=== PATIENT | male | born 1970 | race Caucasian/White ===

== ENCOUNTER 2021-07-05 10:30 | Emergency (ER) | payer BC, SELFPAY ==
[2021-07-05 10:56] VITALS: BP 141/96; PULSE 83; RESP 18; TEMP 36.9; O2SAT 95; BMI 37.5
[2021-07-05 11:19] LABS: Apearance,Urine Clear (Clear); Blood, Urine 3+ (Negative); Color,Urine Dark Yellow (Yellow); Glucose,Urine (UA) Negative (Negative); Ketones,Urine Negative (Negative); Protein,Urine 4+ (Negative); Specific Gravity, Urine 1.025 (1.005-1.030)
[2021-07-05 11:20] LABS: Bilirubin,Urine Negative (Negative); UTC Leukocyte Esterase,Urine Negative (Negative); UTC Nitrate,Urine Negative (Negative); Urobilinogen,Urine 0.2 EU/dl (0.2)
--- NOTE | 2021-07-05 11:29 | HMH.EDUTC ---
[facility] [place] Condition on Discharge: Fair Time of Disposition: 11:42 <aB Maria - Last Filed: 07/05/21 11:41> Condition on Discharge: Good <Glen Bal - Last Filed: 07/05/21 13:37> Clinical Impression: Right upper quadrant abdominal pain, Right flank pain Hematuria Qualifiers: Hematuria type: unspecified type Qualified Code(s): R31.9 - Hematuria, unspecified Disposition: Home, Self-Care Instructions: DI for Flank Pain Prescriptions: Hydrocod/Acet 5/325 mg [[place] 5/325mg tablet] 1 tab PO Q6HP PRN #10 tab PRN Reason: Moderate Pain Transmission Status: Received by [id number] Referrals: Provider,MD Suzanne [Primary Care Provider] - Juni Vogt MD [Staff Physician] - Medical Decision Making - Medical Records Medical records reviewed: No: I reviewed the patient's medical records. - Fortunato Inquiry Pt receiving controlled substance: No - Lab Data Lab results reviewed: Yes: I reviewed the patient's lab results. <Ba Maria - Last Filed: 07/05/21 11:41> - Lab Data Result diagrams: 07/05/21 12:00 07/05/21 12:00 - CT Data CT Scan: Abdomen, Pelvis Time Received: 13:[address] Reviewed: Yes: I have reviewed the patient's CT results, I have viewed the radiologist's interpretation - Reevaluation(s) Time: 13:34 <Glen Bal - Last Filed: 07/05/21 13:37> Vital Signs: 07/05/21 10:56 07/05/21 11:47 Temperature 98.5 F 98.5 F Temperature Source Oral Oral Pulse Rate [Left] 83 80 Respiratory Rate 18 16 Blood Pressure [Right Arm] 141/96 H 150/92 H Blood Pressure Mean [Right Arm] 111 111 Blood Pressure Position [Right Arm] Sitting 02 Sat by Pulse Oximetry 95 98 Oxygen Delivery Method Room Air - Lab Data Lab Results 07/05/21 11:18: Urine Color Dark yellow, Urine Appearance Clear, Urine pH 6.0, Ur Specific [place] 1.025, Urine Protein 4+, Urine Glucose (UA) Negative, Urine Ketones Negative, Urine Blood 3+, Urine Nitrate Negative, Urine Bilirubin Negative, Urine Urobilinogen 0.2, Ur Leukocyte Esterase Negative 07/05/21 12:00: WBC 11.4 H, RBC 5.95, Hgb 17.9, Hct 54.3 H, MCV 91.2, MCH 30.1, MCHC 33.1, RDW 13.7, Plt Count 214, MPV 8.0, Neut % (Auto) 78.9, Lymph % (Auto) 11.9, Lamb % (Auto) 7.8, Eos % (Auto) 1.0, Baso % (Auto) 0.4, Neut # (Auto) 9.0 H, Lymph # (Auto) 1.4, Lamb # (Auto) 0.9, Eos # (Auto) 0.1, Baso # (Auto) 0.1 07/05/21 12:00: Sodium 138, Potassium 3.5, Chloride 98, Carbon Dioxide 34 H, Anion Gap 9.5, BUN 19, Creatinine 1.20, Estimated Creat Clear 133, Estimated GFR 64, Est GFR ( Amer) 77, Glucose 104 H, Calcium 9.0, Total Bilirubin 0.7, AST 27, ALT 25, Alkaline Phosphatase 51, Total Protein 7.5, Albumin 4.0, Globulin 3.5 H, Albumin/Globulin Ratio 1.1, Lipase 160 Orders (Tests/Meds): ED MEDICATIONS Discontinued Medications Generic Name Dose Route Start Last Admin Trade Name Freq PRN Reason Stop Dose Admin Sodium Chloride 1,000 mls @ 999 mls/hr 07/05/21 12:00 07/05/21 12:28 Sod Chlor 0.9% 1000ml Bag IV 07/05/21 13:00 999 mls/hr .Q1H1M AUDIE Administration Morphine Sulfate 4 mg 07/05/21 11:53 07/05/21 12:28 Morphine 4mg/Ml Syringe IV 07/05/21 11:54 4 mg ONCE ONE Administration Ondansetron HCl 4 mg 07/05/21 11:53 07/05/21 12:28 Ondansetron 4mg/2ml Vial IV 07/05/21 11:54 4 mg ONCE ONE Administration ORDERS Category Date Time Status Urine Culture Stat Micro 07/05/21 11:18 Ordered - CT Data Findings Narrative: IMPRESSION: 1. No urolithiasis or hydronephrosis to account for the reported symptomatology. 2. Additional findings as described above. (Glen Bal) - Reevaluation(s) Reevaluation #1: On reevaluation, the patient's pain is significantly improved. Is tolerating oral intake. Patient does have some blood in his urine and, however CT did not show any obvious evidence of kidney stone. He has a small cyst which could be contributing to this, however I think it is more li
[2021-07-05 11:47] VITALS: BP 150/92; PULSE 80; RESP 16; TEMP 36.9; O2SAT 98; BMI 37.5
--- NOTE | 2021-07-05 11:53 | CT_ITS ---
PROCEDURE INFORMATION: Exam: CT Abdomen And Pelvis Without Contrast Exam date and time: 07/05/2021 11:53 AM Age: 50 years old Clinical indication: Abdominal pain; Right; Patient HX: RT flank pain with hematuria; Additional info: Right flank pain TECHNIQUE: Imaging protocol: Computed tomography of the abdomen and pelvis without contrast. Radiation optimization: All CT scans at this facility use at least one of these dose optimization techniques: automated exposure control; mA and/or kV adjustment per patient size (includes targeted exams where dose is matched to clinical indication); or iterative reconstruction. COMPARISON: No relevant prior studies available. FINDINGS: Detailed evaluation of the abdominal and pelvic viscera is somewhat limited in the absence of intravenous contrast. Lungs: Mild interstitial prominence and chronic granulomatous disease. Liver: Fatty infiltration of the liver. Gallbladder and bile ducts: Unremarkable gallbladder. Pancreas: No pancreatic mass or ductal dilatation. Spleen: No splenomegaly. Adrenal glands: Left adrenal nodularity. Kidneys and ureters: 11 mm exophytic cyst arising from the upper pole the right kidney. No urolithiasis or hydronephrosis. Stomach and bowel: Questionable wall thickening in the nondistended stomach. No significant small bowel dilatation. Prominent stool and diverticula, without pericolonic inflammation. Appendix: No acute appendicitis. Intraperitoneal space: Subtle infiltration of mesenteric fat, without intraperitoneal fluid. Vasculature: Normal caliber of the abdominal aorta. Lymph nodes: Subcentimeter lymph nodes. Urinary bladder: Normal bladder morphology. Reproductive: Punctate prostate calcification. Bones/joints: Schmorl's nodes and degenerative change. Soft tissues: Subcutaneous edema. IMPRESSION: 1. No urolithiasis or hydronephrosis to account for the reported symptomatology. 2. Additional findings as described above. COMMENTS: Consistent with the [employer]'s Incidental Findings Committee white paper (J Am Katie Radiol 2018): Any incidental renal lesion less than 1 cm or classified as too small to characterize, or any incidental cystic renal lesion characterized as simple-appearing, is likely benign. No follow-up imaging is recommended for these lesions per consensus recommendations based on imaging criteria.
[2021-07-05 12:22] LABS: Basophils # 0.1 K/mm3 (0-0.2); Basophils % 0.4 % (0.1-2.0); Eosinophils # 0.1 K/mm3 (0.0-0.4); Hematocrit 54.3 % (42.0-52.0); Hemoglobin 17.9 g/dL (14.1-18.0); Lymphocytes # 1.4 K/mm3 (0.7-4.5); Lymphocytes % 11.9 % (10-50); Mean Corpuscular HGB Conc 33.1 g/dL (31.8-35.4); Mean Corpuscular Hemoglobin 30.1 pg (27.0-31.2); Mean Corpuscular Volume 91.2 fl (80-94); Monocytes # 0.9 K/mm3 (0.1-1.0); Monocytes % 7.8 % (1.7-9.3); Neutrophils % 78.9 % (37.0-80.0); Platelet Count 214 K/mm3 (142-424); Red Blood Count 5.95 M/mm3 (4.60-6.20); Red Cell Distribution Width 13.7 % (11.5-17.5); White Blood Count 11.4 K/mm3 (4.8-10.8)
[2021-07-05 12:26] LABS: Chloride 98 mmol/L (98-107); Potassium 3.5 mmoL/L (3.5-5.1); Sodium 138 mmol/L (136-145)
[2021-07-05 12:28] LABS: Blood Urea Nitrogen 19 mg/dl (9-20)
[2021-07-05 12:29] LABS: Alanine Aminotransferase 25 U/L (12-78); Albumin/Globulin Ratio 1.1 (1.1-1.8); Alkaline Phosphatase 51 U/L (38-126); Anion Gap 9.5 mEq/L (5-15); Aspartate Amino Transferase 27 U/L (17-59); Bilirubin,Total 0.7 mg/dl (0.2-1.3); Carbon Dioxide 34 mmol/L (22.0-30.0); Creatinine Clearance Estimated 133 mL/min (50-200); Estimated Glomerular Filt Rate 64 ml/min (>60); GFR (African American) 77 ML/MIN (>60); Globulin 3.5 g/dL (1.3-3.2); Glucose 104 mg/dl (74-100); Lipase 160 U/L (23-300); Total Protein,Serum 7.5 g/dl (6.3-8.2)
[2021-07-05 13:44] VITALS: BP 134/87; PULSE 89; RESP 16; TEMP 36.6; O2SAT 98
== END 2021-07-05 13:46 | disposition home or self-care (01) ==
LOC: UTC 10:45 → ER 11:41
PROVIDERS: Emergency Medicine; Emergency Provider Nurse Practitioner Family
DX: R10.11 Right upper quadrant pain (principal); R31.9 Hematuria, unspecified
CPT/HCPCS: 74176; 80053; 81003; 83690; 85025; 87086; 96365; 96375; 99283; J2405

== ENCOUNTER → 2021-08-06 11:20 | Outpatient (CLI) | payer BC, SELFPAY | PROVIDERS: Visit Provider Nurse Practitioner | DX: U07.1 COVID-19 (principal) | CPT/HCPCS: C9803; U0003; U0005 ==

== ENCOUNTER 2021-11-26 15:20 | Emergency (ER) | payer BC, SELFPAY ==
[2021-11-26 15:43] VITALS: BP 180/113; PULSE 81; RESP 18; TEMP 36.8; O2SAT 95; BMI 37.5
--- NOTE | 2021-11-26 15:58 | HMH.EDUTC ---
[facility] – [place] Disposition Clinical Impression: Sinusitis Qualifiers: Sinusitis location: unspecified location Chronicity: acute Recurrence: non-recurrent Qualified Code(s): J01.90 - Acute sinusitis, unspecified Disposition: Home, Self-Care Condition on Discharge: Good Instructions: DI for Sinusitis Additional Instructions: Drink plenty of fluids. Take tylenol or ibuprofen for pain or fever. Take the medications as directed. Follow up with your regular doctor. GO TO THE ER FOR ANY WORSENING SYMPTOMS Prescriptions: Benzonatate [Benzonatate 100mg cap] 100 mg PO TIDP PRN #30 cap PRN Reason: Cough [facility]: [facility] methylPREDNISolone [Medrol] 4 mg PO DIRECTED 6 Days #21 packet Transmission Status: [facility] guaiFENesin [Mucinex 600mg tablet] 1 - 2 tab PO BIDP PRN #30 tab PRN Reason: Congestion Transmission Status: [facility] Azithromycin [Z-Kapil 250mg Tab*] 250 mg PO UD DOSE PK #6 tab Transmission Status: [facility] Referrals: Dixie,August, SHANK CEMENTER HAND [Primary Care Provider] - Forms: Work/School Release Time of Disposition: 17:17 Medical Decision Making - Medical Records Medical records reviewed: No: I reviewed the patient's medical records. - Fortunato Inquiry Pt receiving controlled substance: No Vital Signs: 11/26/21 15:43 11/26/21 17:26 Temperature 98.2 F 98.2 F Temperature Source Oral Pulse Rate 81 Pulse Rate [Left] 81 Respiratory Rate 18 18 Blood Pressure 180/113 H Blood Pressure [Right Arm] 180/113 H Blood Pressure Mean [Right Arm] 135 02 Sat by Pulse Oximetry 95 Orders (Tests/Meds): ED MEDICATIONS Discontinued Medications Generic Name Dose Route Start Last Admin Trade Name Freq PRN Reason Stop Dose Admin Ceftriaxone Sodium 1 gm 11/26/21 16:50 11/26/21 17:09 Ceftriaxone 1gm Vial IM 11/26/21 16:51 1 gm ONCE ONE Administration Ketorolac Tromethamine 60 mg 11/26/21 16:50 11/26/21 17:09 Ketorolac 60mg/2ml Vial IM 11/26/21 16:51 60 mg ONCE ONE Administration Lidocaine HCl 0 ml 11/26/21 16:50 11/26/21 17:09 Lidocaine 1% 5ml Pf Vial IM 11/26/21 16:51 2 ml ONCE ONE Administration Methylprednisolone Sodium Succinate 125 mg 11/26/21 16:50 11/26/21 17:08 Methylprednisolone Sod Succ 125mg Vial IM 11/26/21 16:51 125 mg ONCE ONE Administration [facility] [place] HPI - General Stated complaint: sinus , cough, runny nose ,L foot pain Time Seen by Provider: 11/26/21 15:58 Mode of Arrival: Ambulatory Source of Information: Patient Limitations: No Limitations Description of Symptoms (Recalled from Triage Doc. by RN): pt c/o sinus drainage/congestion and a cough x3wks. HEENT Symptoms (Recalled from RN notes): Yes Resp Symptoms (Recalled from RN notes): Yes Skin Symptoms (Recalled from RN notes): No MS Symptoms (Recalled from RN notes): No Functional Status (Recalled from RN notes): wnl - History of Present Illness Provider Complaint: He c/o having sinus congestion and sinus drainage for the past 3 weeks. He usually gets a sinus infection this time of the year and he feels like that is what he has now. - Related Data Previous Rx's Medication Instructions Recorded Hydrocod/Acet 5/325 mg [[place] 1 tab PO Q6HP PRN #10 tab 07/05/21 5/325mg tablet] Azithromycin [Z-Kapil 250mg Tab*] 250 mg PO UD DOSE PK #6 tab 11/26/21 Benzonatate [Benzonatate 100mg 100 mg PO TIDP PRN #30 cap 11/26/21 cap] guaiFENesin [Mucinex 600mg tablet] 1 - 2 tab PO BIDP PRN #30 tab 11/26/21 methylPREDNISolone [Medrol] 4 mg PO DIRECTED 6 Days #21 11/26/21 packet Allergies Allergy/AdvReac Type Severity Reaction Status Date / Time No Known Allergies Allergy Verified 07/05/21 11:02 - Worker's Comp Is this a Worker's Comp case?: No [facility] History - Hepatitis A Screen Attestation statement:: This patient has been screened for Hepatitis A
[2021-11-26 17:26] VITALS: BP 180/113; PULSE 81; RESP 18; TEMP 36.8
== END 2021-11-26 17:27 | disposition home or self-care (01) ==
PROVIDERS: Emergency Provider Nurse Practitioner Family; PCP Nurse Practitioner Primary Care
DX: J01.90 Acute sinusitis, unspecified (principal); M79.672 Pain in left foot; Z79.52 Long term (current) use of systemic steroids
CPT/HCPCS: 96372; 99213; G0463; J0696

== ENCOUNTER 2021-12-22 15:22 | Emergency (ER) | payer BC, SELFPAY ==
[2021-12-22 16:40] VITALS: BP 119/76; PULSE 76; RESP 16; TEMP 36.7; O2SAT 98; BMI 38.2
--- NOTE | 2021-12-22 17:04 | HMH.EDUTC ---
[facility] [place]: Rash Disposition: Home, Self-Care Condition on Discharge: Good Instructions: DI for Rash, Cephalexin, Methylprednisolone Additional Instructions: Take medication as prescribed FOllow up with Family Doctor if no improvement or any worsening of symptoms Return if needed Straight to ER if any life threatening symptoms Start oral steriods tomorrow 11/23/21 Prescriptions: cephALEXin [cephALEXin 500mg capsule*] 500 mg PO Q6H 7 Days #28 cap Transmission Status: Received by [facility] methylPREDNISolone [Medrol 4mg tab] 4 mg PO DIRECTED #21 tab Transmission Status: Received by [facility] Referrals: Provider,Referral, MD [Primary Care Provider] - As needed Time of Disposition: 17:40 Medical Decision Making - Fortunato Inquiry Pt receiving controlled substance: No Fortunato was queried for this patient: No Vital Signs: 12/22/21 16:40 12/22/21 17:25 Temperature 98.1 F 98.1 F Temperature Source Oral Pulse Rate 76 Pulse Rate [Right Brachial] 76 Respiratory Rate 16 16 Blood Pressure 119/76 Blood Pressure [Right Arm] 119/76 Blood Pressure Mean [Right Arm] 90 Blood Pressure Source [Right Arm] Automatic Cuff Blood Pressure Position [Right Arm] Sitting 02 Sat by Pulse Oximetry 98 Oxygen Delivery Method Room Air Orders (Tests/Meds): ED MEDICATIONS Discontinued Medications Generic Name Dose Route Start Last Admin Trade Name Allyn PRN Reason Stop Dose Admin Methylprednisolone Sodium Succinate 125 mg 12/22/21 17:11 12/22/21 17:25 Methylprednisolone Sod Succ 125mg Vial IM 12/22/21 17:12 125 mg ONCE ONE Administration [facility] [place] General Stated complaint: Possible reaction,Face swollen Time Seen by Provider: 12/22/21 17:04 Mode of Arrival: Ambulatory Source of Information: Patient Limitations: No Limitations Description of Symptoms (Recalled from Triage Doc. by RN): PATIENT C/O POSSIBLE ALLERGIC REACTION TO FACE SINCE WEDNESDAY HEENT Symptoms (Recalled from RN notes): No Resp Symptoms (Recalled from RN notes): No Skin Symptoms (Recalled from RN notes): Yes MS Symptoms (Recalled from RN notes): No Functional Status (Recalled from RN notes): WNL - History of Present Illness Provider Complaint: Patient states that he was cutting weeds over the weekend and not sure if he may have got into something he was allergic to or if something may have bitten him States that he has been having swelling in the left side of his face and rash ever since States that yesterday his lip was swollen and he took some benadryl and it helped some States he is not sure if rash and swelling are connected or not - Related Data Home Medications Medication Instructions Recorded Confirmed Testosterone Cypionate 200 mg IM DAILY 12/22/21 12/22/21 allopurinoL [Allopurinol 300mg 300 mg PO DAILY 12/22/21 12/22/21 tablet] hydroCHLOROthiazide [HCTZ 25mg 25 mg PO DAILY 12/22/21 12/22/21 tab] lisinopriL [Lisinopril] 20 mg PO DAILY 12/22/21 12/22/21 Previous Rx's Medication Instructions Recorded cephALEXin [cephALEXin 500mg 500 mg PO Q6H 7 Days #28 cap 12/22/21 capsule*] methylPREDNISolone [Medrol 4mg 4 mg PO DIRECTED #21 tab 12/22/21 tab] Allergies Allergy/AdvReac Type Severity Reaction Status Date / Time No Known Allergies Allergy Verified 07/05/21 11:02 - Worker's Comp Is this a Worker's Comp case?: No [facility] History - Hepatitis A Screen Attestation statement:: This patient has been screened for Hepatitis A risk factors. I have reviewed the patient's past medical history: Yes Laterality Cases: Bilateral: Tonsillectomy - Social History Alcohol Intake: never Occupational Status: other ROS Obtained: Yes All systems reviewed & no additional complaints, Yes Systems reviewed as appropriate & no additional complaints - Constitutional Constitutional: Reports system reviewed and no additional complaints, except
[2021-12-22 17:25] VITALS: BP 119/76; PULSE 76; RESP 16; TEMP 36.7; O2SAT 98
== END 2021-12-22 17:45 | disposition home or self-care (01) ==
PROVIDERS: Emergency Provider Nurse Practitioner
DX: R21 Rash and other nonspecific skin eruption (principal)
CPT/HCPCS: 96372; 99212; G0463

== ENCOUNTER 2022-07-21 15:44 | Emergency (ER) | payer BC, SELFPAY ==
[2022-07-21 15:50] VITALS: BP 148/90; PULSE 74; RESP 18; TEMP 36.7; O2SAT 98; BMI 36.5
--- NOTE | 2022-07-21 16:08 | EXP.UTC ---
Discharge Plan Disposition Patient Disposition: Home, Self-Care Prescriptions Prescriptions: New prednisone 10 mg tablet 10 mg PO BID 5 Days Qty: 10 0RF azithromycin [Zithromax Z-Kapil] 250 mg tablet See Rx Instructions .ROUTE .COMPLEX 5 Days Qty: 6 0RF Rx Instructions: For 250 mg dose pack: take 500 mg today (day 1), then 250 mg for 4 days (days 2-5) polymyxin B sulf-trimethoprim [Polytrim] 10,000 unit- 1 mg/mL drops 2 drp ophthalmic (eye) Q6H 7 Days Qty: 10 0RF Rx Instructions: while awake; do not exceed 6 doses in 24 hours No Action lisinopril 20 MG tablet 20 mg PO DAILY allopurinol 300 MG tablet 300 mg PO DAILY hydrochlorothiazide 25 MG tablet 25 mg PO DAILY testosterone cypionate 200 MG/ML oil 200 mg IM DAILY rosuvastatin 5 mg tablet 5 mg PO HS Label Comments: TAKE 1 TABLET BY MOUTH ONCE DAILY Referrals Follow up/Referrals: Jalil Osman MD [Primary Care Provider] - See instructions Activity Restrictions/Add. Instructions Additional Instructions/Restrictions: *Monitor Temp, Over the counter Motrin or Tylenol as directed/as needed Tylenol every 4 hours and Motrin every 6 hours (as long as your family doctor has told you that you can take it) for fever or pain. and straight to ER if unable to lower temp less than 101.0 after medication given *Warm salt water gargles may help to soothe the throat *Throat Lozenges? *Warm fluids like tea with honey may help to soothe the throat? *Sleep elevated *Humidifier/Vaporizer Wash your hands before and after applying eyedrops Return if needed Follow up IMMEDIATELY for new or worsening symptoms or no Noticeable improvement over the next 48-72 hours. 911 for difficulty breathing or swallowing Clinical Impressions Clinical Impression: Sinusitis, Conjunctivitis Instructions Patient Instructions: DI for Sinusitis, Sinusitis, Conjunctivitis, DI for Conjunctivitis Discharge ED Provider: Nava Yip [facility] [place] General Stated complaint: congestion, sinus pressure, watery eyes Mode of Arrival: Ambulatory Source of Information: Patient Limitations: No Limitations Time Seen by Provider: 07/21/22 16:08 Description of Symptoms (Recalled from Triage Doc. by RN): PATIENT C/O SINUS CONGESTION, EYE DRAINAGE, AND COUGH X 3 DAYS HEENT Symptoms (Recalled from RN notes): Yes Resp Symptoms (Recalled from RN notes): Yes Skin Symptoms (Recalled from RN notes): No MS Symptoms (Recalled from RN notes): No Functional Status (Recalled from RN notes): WNL History of Present Illness Provider Complaint: Patient states that he has been having sinus pain and pressure, cough and drainage from his eyes States that today drainage from his eyes has got worse and is thick stringy yellowish colored so this evening he came in to get checked out Related Data Home Medications Medication Instructions Recorded Confirmed allopurinol 300 mg tablet 300 mg PO DAILY GOUT 12/22/21 07/21/22 hydrochlorothiazide 25 mg tablet 25 mg PO DAILY Fluid 12/22/21 07/21/22 lisinopril 20 mg tablet 20 mg PO DAILY Hypertension 12/22/21 07/21/22 testosterone cypionate 200 mg/mL 200 mg IM DAILY Supplement 12/22/21 07/21/22 intramuscular oil rosuvastatin 5 mg tablet 5 mg PO HS Cholesterol 07/21/22 07/21/22 Previous Rx's Medication Instructions Recorded azithromycin 250 mg tablet See Rx Instructions PO .COMPLEX 5 07/21/22 (Zithromax Z-Kapil) days #6 tabs polymyxin B sulfate 10,000 2 drp ophthalmic (eye) Q6H 7 days 07/21/22 unit-trimethoprim 1 mg/mL eye #10 mL drops (Polytrim) prednisone 10 mg tablet 10 mg PO BID 5 days #10 tabs 07/21/22 Allergies Allergy/AdvReac Type Severity Reaction Status Date / Time No Known Allergies Allergy Verified 07/05/21 11:02 Worker's Comp Is this a Worker's Comp case?: No PFS PFS Disclaimer: The information contained in this section may have been updated after the patient
[2022-07-21 16:11] VITALS: BP 148/90; PULSE 74; RESP 18; TEMP 36.7; O2SAT 98
== END 2022-07-21 16:24 | disposition home or self-care (01) ==
PROVIDERS: Emergency Provider Nurse Practitioner; PCP Family Medicine
DX: H10.9 Unspecified conjunctivitis (principal); J32.9 Chronic sinusitis, unspecified
CPT/HCPCS: 99212; G0463

== ENCOUNTER → 2022-12-15 15:34 | Outpatient (CLI) | payer BC, SELFPAY | PROVIDERS: PCP Physician Assistant; Visit Provider Physician Assistant | DX: G47.33 Obstructive sleep apnea (adult) (pediatric) (principal); R06.83 Snoring | CPT/HCPCS: G0399 ==

== ENCOUNTER → 2022-12-29 15:40 | Outpatient (POV) | payer BC, SELFPAY | PROVIDERS: Visit Provider Dermatology | DX: Z00.00 Encounter for general adult medical examination without abnormal findings (principal) ==

== ENCOUNTER → 2023-01-07 23:00 | Outpatient (CLI) | payer BC, SELFPAY ==
[2023-01-07 18:37] LABS: Basophils # 0.1 K/mm3 (0-0.2); Basophils % 0.7 % (0.1-2.0); Eosinophils # 0.2 K/mm3 (0.0-0.4); Eosinophils % 2.4 % (0.1-12.0); Hematocrit 53.9 % (42.0-52.0); Hemoglobin 17.2 g/dL (14.1-18.0); Lymphocytes # 2.4 K/mm3 (0.7-4.5); Lymphocytes % 27.3 % (10-50); Mean Corpuscular HGB Conc 31.9 g/dL (31.8-35.4); Mean Corpuscular Hemoglobin 28.7 pg (27.0-31.2); Mean Platelet Volume 8.8 fl (7.4-10.4); Monocytes # 0.7 K/mm3 (0.1-1.0); Monocytes % 8.1 % (1.7-9.3); Neutrophils # 5.4 K/mm3 (1.8-7.8); Neutrophils % 61.5 % (37.0-80.0); Platelet Count 224 K/mm3 (142-424); Red Blood Count 5.98 M/mm3 (4.60-6.20); Red Cell Distribution Width 14.8 % (11.5-17.5); White Blood Count 8.7 K/mm3 (4.8-10.8)
[2023-01-07 18:59] LABS: Alanine Aminotransferase 34 U/L (12-78); Albumin Level 4.5 g/dl (3.5-5.0); Albumin/Globulin Ratio 1.5 (1.1-1.8); Alkaline Phosphatase 54 U/L (38-126); Anion Gap 18.6 mEq/L (5-15); Aspartate Amino Transferase 32 U/L (17-59); Bilirubin,Total 0.5 mg/dl (0.2-1.3); Blood Urea Nitrogen 28 mg/dl (9-20); Calcium 9.7 mg/dl (8.4-10.2); Carbon Dioxide 32 mmol/L (22.0-30.0); Chloride 97 mmol/L (98-107); Chol/HDL Ratio 3.7 (1-3.5); Cholesterol 158 mg/dl (140-200); Estimated Glomerular Filt Rate 49 ml/min (>60); GFR (African American) 59 ML/MIN (>60); Globulin 3.1 g/dL (1.3-3.2); Glucose 113 mg/dl (74-100); HDL Cholesterol 43 mg/dl (40-60); Potassium 4.6 mmoL/L (3.5-5.1); Sodium 143 mmol/L (136-145); Total Protein,Serum 7.6 g/dl (6.3-8.2); Triglycerides 319 mg/dl (30-150); VLDL Cholesterol 64 mg/dL (0-40)
[2023-01-07 19:11] LABS: Direct LDL Cholesterol 70.28 mg/dL (100-129)
[2023-01-07 19:30] LABS: Prostate Specific Ag Screen 0.5 ng/ml (0.0-4.0); Thyroid Stimulating Hormone 2.04 uIU/mL (0.465-4.68)
[2023-01-07 19:49] LABS: Vitamin B12 978 pg/mL (239-931)
[2023-01-09 12:28] LABS: Testosterone,Total 121 ng/dL (264-916)
== END ==
PROVIDERS: PCP Physician Assistant; Visit Provider Physician Assistant
DX: E66.9 Obesity, unspecified; E29.1 Testicular hypofunction; Z68.35 Body mass index [BMI] 35.0-35.9, adult; Z12.5 Encounter for screening for malignant neoplasm of prostate
CPT/HCPCS: 80053; 80061; 82306; 82607; 84403; 84443; 85025; G0103

== ENCOUNTER 2023-01-28 15:18 | Emergency (ER) | payer BC, SELFPAY ==
[2023-01-28 15:20] VITALS: BP 155/93; PULSE 85; RESP 20; TEMP 37.1; O2SAT 97; BMI 38.9
--- NOTE | 2023-01-28 15:35 | EXP.UTC ---
Discharge Plan Disposition Patient Disposition: Home, Self-Care Condition: Good Prescriptions Prescriptions: New promethazine-DM 6.25-15 mg/5 mL syrup 5 ml PO Q6H PRN (Reason: cough) Qty: 118 0RF fluticasone propionate [Flonase Allergy Relief] 50 mcg/actuation spray,suspension 1 - 2 spray intranasal DAILY Qty: 16 0RF Rx Instructions: administer into each nostril amoxicillin 875 mg tablet 875 mg PO BID Qty: 20 0RF methylprednisolone [Medrol (Kapil)] 4 mg tablets,dose pack See Rx Instructions .Route .COMPLEX 6 Days Qty: 21 0RF Rx Instructions: taper pack; No Action cholecalciferol (vitamin D3) 1,250 mcg (50,000 unit) capsule 1,250 mcg PO WEEKLY mecobalamin (vitamin B12) 5,000 mcg tablet,disintegrating 5,000 mcg PO tadalafil 20 mg tablet 20 mg PO DAILY Qty: 14 0RF testosterone cypionate 200 mg/mL oil 200 mg IM Q2W Qty: 1 5RF Wegovy 0.25 mg/0.5 mL pen injector 0.25 mg SQ WEEKLY Qty: 2 0RF Rx Instructions: administer weeks 1 through 4 of therapy,then increase to 0.5 mg benzonatate 200 mg capsule 200 mg PO TID PRN (Reason: cough) 10 Days Qty: 30 0RF hydrochlorothiazide 25 MG tablet 25 mg PO DAILY lisinopril 20 mg tablet 40 mg PO DAILY rosuvastatin 5 mg tablet 5 mg PO HS Patient Comments: TAKE 1 TABLET BY MOUTH ONCE DAILY Referrals Follow up/Referrals: Joseline Bender PA [Primary Care Provider] - See instructions Activity Restrictions/Add. Instructions Additional Instructions/Restrictions: *Monitor Temp, Over the counter Motrin or Tylenol as directed/as needed Tylenol every 4 hours and Motrin every 6 hours (as long as your family doctor has told you that you can take it) for fever or pain. and straight to ER if unable to lower temp less than 101.0 after medication given *Warm salt water gargles may help to soothe the throat *Throat Lozenges? *Warm fluids like tea with honey may help to soothe the throat? *Sleep elevated *Humidifier/Vaporizer *Flonase 2 sprays in each nostril daily but be aware that it may take 2-3 days before you notice improvement Your throat swab was sent for culture. Those results are typically sent to your primary care. Be sure to follow up in 2-3 days with your family doctor/primary care physician if no improvement so they can review those result and treat if necessary. If you don?t have a primary care doctor, I recommend you get one but in the mean time, you will have to return to a walk in clinic Follow up IMMEDIATELY for new or worsening symptoms or no Noticeable improvement over the next 48-72 hours. 911 for difficulty breathing or swallowing Clinical Impressions Clinical Impression: Otitis media Qualifiers: Otitis media type: unspecified Laterality: right Qualified Code(s): H66.91 - Otitis media, unspecified, right ear Instructions Patient Instructions: Middle Ear Infection, Ear Infections (Alternative Therapy), DI for Sinusitis, Cough Discharge ED Provider: Nava Yip [facility] General Stated complaint: congestion Mode of Arrival: Ambulatory Source of Information: Patient Limitations: No Limitations Time Seen by Provider: 01/28/23 15:30 Description of Symptoms (Recalled from Triage Doc. by RN): PATIENT C/O COUGH AND SCRATCHY THROAT THAT STARTED A COUPLE OF WEEKS AGO AFTER STARTING USE OF C-PAP HEENT Symptoms (Recalled from RN notes): Yes Resp Symptoms (Recalled from RN notes): Yes Skin Symptoms (Recalled from RN notes): No MS Symptoms (Recalled from RN notes): No Functional Status (Recalled from RN notes): WNL History of Present Illness Provider Complaint: Patient states that he started using Cpap about 2 weeks ago not sure if they are related States that he has been having nasal congestion and pressure, pressure and pain in his ears, sore scratchy throat and cough States that he has tried Tessalon Perrles but they arent working so
[2023-01-28 15:52] VITALS: BP 155/93; PULSE 85; RESP 20; TEMP 37.1; O2SAT 97
[2023-01-28 15:52] LABS: UTC Strep Screen (Rapid) Negative (Negative)
== END 2023-01-28 16:00 | disposition home or self-care (01) ==
PROVIDERS: Emergency Provider Nurse Practitioner; PCP Physician Assistant
DX: H66.91 Otitis media, unspecified, right ear (principal); I10 Essential (primary) hypertension; E78.5 Hyperlipidemia, unspecified; R73.03 Prediabetes
CPT/HCPCS: 87880; 99212; 99214; G0463

== ENCOUNTER → 2023-02-04 07:48 | Outpatient (CLI) | payer BC, SELFPAY ==
[2023-02-04 08:38] LABS: Anion Gap 10.9 mEq/L (5-15); Blood Urea Nitrogen 24 mg/dl (9-20); Calcium 8.8 mg/dl (8.4-10.2); Carbon Dioxide 32 mmol/L (22.0-30.0); Chloride 101 mmol/L (98-107); Estimated Glomerular Filt Rate 63 ml/min (>60); GFR (African American) 77 ML/MIN (>60); Glucose 116 mg/dl (74-100); Potassium 3.9 mmoL/L (3.5-5.1); Sodium 140 mmol/L (136-145)
[2023-02-04 08:54] LABS: Hemoglobin A1C 7.2 % (4.0-6.0)
[2023-02-05 14:28] LABS: Testosterone,Total 51 ng/dL (264-916)
== END ==
PROVIDERS: PCP Physician Assistant; Visit Provider Physician Assistant
DX: N28.9 Disorder of kidney and ureter, unspecified (principal); R73.09 Other abnormal glucose
CPT/HCPCS: 36415; 80048; 83036; 84403

== ENCOUNTER 2023-12-31 19:09 | Emergency (ER) | payer BC, SELFPAY ==
--- NOTE | 2023-12-31 19:40 | ED_ITS ---
Discharge Plan Disposition Patient Disposition: Home, Self-Care Condition: Good Prescriptions Prescriptions: New benzonatate 100 mg capsule 100 mg PO TIDP PRN (Reason: Cough) Qty: 30 0RF methylprednisolone 4 mg Tablets,Dose Pack 4 mg PO DIRECTED 6 Days Qty: 21 0RF Rx Instructions: Take 1 pack as directed for 6 days amoxicillin-pot clavulanate 875-125 mg Tablet 1 tab PO Q12H Qty: 20 0RF guaifenesin [Mucinex] 600 mg tablet extended release 12hr 600 - 1,200 mg PO BIDP PRN (Reason: Congestion) Qty: 30 0RF No Action tadalafil 20 mg tablet 20 mg PO DAILY Qty: 14 0RF (DME) blood-glucose meter [Blood Glucose Monitoring] Kit See Rx Instructions .Route Qty: 1 0RF Rx Instructions: FS BID (DME) Blood Glucose Test Strip See Rx Instructions .Route Qty: 50 3RF Rx Instructions: FS BID (DME) lancets [Accu-Chek Softclix Lancets] Misc See Rx Instructions .Route Qty: 100 3RF Rx Instructions: FS BID aspirin [Adult Aspirin Regimen] 81 mg tablet,delayed release (DR/EC) 81 mg PO DAILY Qty: 90 3RF fluticasone propionate [Flonase Allergy Relief] 50 mcg/actuation spray,suspension 1 - 2 spray intranasal DAILY Qty: 16 5RF Rx Instructions: administer into each nostril phentermine [Adipex-P] 37.5 mg tablet 37.5 mg PO DAILY Qty: 30 0RF Rx Instructions: must administer 30 minutes before or 1-2 hours after breakfast lisinopril 40 mg tablet 40 mg PO QDAY 90 Days Qty: 90 3RF Ozempic 1 mg/dose (4 mg/3 mL) pen injector 1 mg SQ WEEKLY Qty: 3 2RF testosterone cypionate 200 mg/mL oil 200 mg IM .COMPLEX Qty: 4 3RF Rx Instructions: 200 mg intramuscularly every 10 days; hydrochlorothiazide 25 mg tablet 25 mg PO DAILY Qty: 90 1RF Referrals Follow up/Referrals: Rosa Maria Bender APRN [Primary Care Provider] - See instructions Activity Restrictions/Add. Instructions Additional Instructions/Restrictions: Drink plenty of fluids. Take tylenol or ibuprofen for pain or fever. Take the medications as directed. Follow up with your regular doctor. GO TO THE ER FOR ANY WORSENING SYMPTOMS Clinical Impressions Clinical Impression: Acute bronchitis Instructions Patient Instructions: Acute Bronchitis, DI for Acute Bronchitis, Methylprednisolone, Amoxicillin and Clavulanic Acid, Dexamethasone Injection Discharge ED Provider: Ba Maria [facility] [place] General Stated complaint: Cough Time Seen by Provider: 12/31/23 19:40 Related Data Previous Rx's Medication Instructions Recorded tadalafil 20 mg tablet 20 mg PO DAILY #14 tabs 01/07/23 blood sugar diagnostic (Blood #50 ea 02/04/23 Glucose Test strips) blood-glucose meter (Blood Glucose #1 ea 02/04/23 Monitoring kit) lancets (Accu-Chek Softclix #100 ea 02/04/23 Lancets) aspirin 81 mg tablet,delayed 81 mg PO DAILY #90 tabs 04/28/23 release (Adult Aspirin Regimen) fluticasone propionate 50 1 - 2 spray intranasal DAILY #16 04/28/23 mcg/actuation nasal grams spray,suspension (Flonase Allergy Relief) lisinopril 40 mg tablet 40 mg PO QDAY 90 days #90 tabs 04/28/23 phentermine 37.5 mg tablet 37.5 mg PO DAILY #30 tabs 04/28/23 (Adipex-P) semaglutide 1 mg/dose (4 mg/3 mL) 1 mg (0.75 mL) SQ WEEKLY #3 mL 04/28/23 subcutaneous pen injector (Ozempic) testosterone cypionate 200 mg/mL 200 mg IM .COMPLEX Supplement #4 mL 07/19/23 intramuscular oil hydrochlorothiazide 25 mg tablet 25 mg PO DAILY Fluid #90 tabs 12/30/23 amoxicillin 875 mg-potassium 1 tab PO Q12H #20 tabs 12/31/23 clavulanate 125 mg tablet benzonatate 100 mg capsule 100 mg PO TIDP PRN Cough #30 caps 12/31/23 guaifenesin 600 mg tablet, 600 - 1,200 mg (1 - 2 x 600 mg) PO 12/31/23 extended release 12 hr (Mucinex) BIDP PRN Congestion #30 tabs methylprednisolone 4 mg tablets in 4 mg PO DIRECTED 6 days #21 tabs 12/31/23 a dose pack Allergies Allergy/AdvReac Type Severity Reaction Status Date / Time No Known Allergies Allergy Verified 06/07/23 15:28 [facility] Disclaimer: The information contained in this section may have been updated after the patient was seen, as this information can be updated by other users. Medical History Gout Hyperlipidemia Hypertension Prediabetes Type 2 diabetes mellitus Surgical History History of cholecystectomy History of tonsillectomy Social History Smoking Status: Unknown if ever smoked alcohol intake: never current occupational status: other Travel in the last 8 weeks: None ROS Obtained: Yes All systems reviewed & no additional complaints except as documented Constitutional Constitutional: Reports poor appetite Eyes Eyes: Reports system reviewed and no additional complaints, except as documented ENT Ears, Nose, Mouth, and Throat: Reports as per HPI Cardiovascular Cardiovascular: Reports system reviewed and no additional complaints, except as documented and Denies chest pain Respiratory Respiratory: Denies shortness of breath, Reports chest congestion, Reports cough, Denies stridor and Denies wheezing Gastrointestinal Gastrointestingal: Reports system reviewed and no additional complaints, except as documented; Denies abdominal pain, diarrhea or vomiting Musculoskeletal Musculoskeletal: Reports system reviewed and no additional complaints, except as documented and Denies arthralgias Integumentary/Breasts Skin/Breast: Reports system reviewed and no additional complaints, except as documented and Denies rash Neurologic Neurologic: Denies paresthesias Allergic/Immunologic Allergic/Immunologic: Denies wheezing Physical Exam General General appearance: alert and in no apparent distress Eye Eye exam: Present normal appearance, PERRL and EOMI ENT ENT exam: Present mucous membranes moist and normal external ear exam Expanded ENT Exam External ear exam: Present normal external inspection TM/Canal exam: Bilateral TM: erythema and bulging Nose exam: Absent sinus tenderness Nasal speculum exam: Bilateral: normal Mouth exam: Present normal external inspection; Absent drooling Teeth exam: Present normal inspection Throat exam: Present tonsillar erythema and tonsillomegaly Neck Neck exam: Present normal inspection, full ROM and trachea midline; Absent tenderness, lymphadenopathy or thyromegaly Chest Chest inspection: Present normal inspection and symmetric chest wall rise; Absent tenderness or rash Respiratory Respiratory exam: Present normal lung sounds bilaterally; Absent respiratory distress, wheezes, stridor or accessory muscle use Cardiovascular Cardiovascular exam: Present regular rate, normal rhythm and normal heart sounds Abdominal Exam Abdominal exam: Present soft; Absent distention, tenderness, guarding, rebound or rigidity Extremities Exam Extremities exam: Present normal inspection, full ROM and normal capillary refill; Absent tenderness or calf tenderness Back Exam Back exam: Present normal inspection and full ROM; Absent tenderness Neurological Exam Neurological exam: Present alert and oriented X3 Psychiatric Psychiatric exam: Present normal affect and normal mood Skin Skin exam: Present warm, dry, intact and normal color Lymphatic Lymphatic Findings: no adenopathy Medical Decision Making Medical Records Medical records reviewed: No I reviewed the patient's medical records. Fortunato Inquiry Pt receiving controlled substance: No
[2023-12-31 19:41] VITALS: BP 141/86; PULSE 79; RESP 20; TEMP 36.7; O2SAT 95; BMI 38.7
[2023-12-31] MEDS: DEXAMETHASONE 4MG/ML 1ML VIAL 8 MG IM (20:00)
[2023-12-31 20:31] VITALS: BP 141/86; PULSE 79; RESP 20; TEMP 36.7; O2SAT 95
== END 2023-12-31 20:32 | disposition home or self-care (01) ==
PROVIDERS: Emergency Provider Nurse Practitioner Family; PCP Nurse Practitioner
DX: J20.9 Acute bronchitis, unspecified (principal); R05.9 Cough, unspecified
CPT/HCPCS: 96372; 99212; 99214; G0463

== ENCOUNTER 2024-02-11 12:30 | Emergency (ER) | payer BC, SELFPAY ==
[2024-02-11 12:35] VITALS: BP 152/82; PULSE 68; RESP 20; TEMP 36.8; O2SAT 95; BMI 37.4
--- NOTE | 2024-02-11 13:09 | ED_ITS ---
Discharge Plan Disposition Patient Disposition: Home, Self-Care Condition: Good Prescriptions Prescriptions: New amoxicillin 875 mg tablet 875 mg PO Q12H Qty: 20 0RF benzonatate 100 mg capsule 100 mg PO TIDP PRN (Reason: Cough) Qty: 30 0RF methylprednisolone 4 mg Tablets,Dose Pack 4 mg PO DIRECTED 6 Days Qty: 21 0RF Rx Instructions: Take 1 pack as directed for 6 days guaifenesin [Mucinex] 600 mg tablet extended release 12hr 600 - 1,200 mg PO BIDP PRN (Reason: Congestion) Qty: 30 0RF oseltamivir [Tamiflu] 75 mg capsule 75 mg PO BID Qty: 10 0RF No Action (DME) blood-glucose meter [Blood Glucose Monitoring] Kit See Rx Instructions .Route Qty: 1 0RF Rx Instructions: FS BID (DME) Blood Glucose Test Strip See Rx Instructions .Route Qty: 50 3RF Rx Instructions: FS BID (DME) lancets [Accu-Chek Softclix Lancets] Misc See Rx Instructions .Route Qty: 100 3RF Rx Instructions: FS BID potassium chloride 10 mEq tablet extended release 10 meq PO DAILY Patient Comments: TAKE 1 TABLET BY MOUTH ONCE DAILY WITH FOOD hydrochlorothiazide 25 mg tablet 25 mg PO DAILY Patient Comments: TAKE 1 TABLET BY MOUTH ONCE DAILY FOR FLUID lisinopril 40 mg tablet 40 mg PO DAILY Patient Comments: TAKE 1 TABLET BY MOUTH ONCE DAILY Referrals Follow up/Referrals: Bebo Vaughn MD [Primary Care Provider] - See instructions Activity Restrictions/Add. Instructions Additional Instructions/Restrictions: Drink plenty of fluids. Take tylenol or ibuprofen for pain or fever. Take the medications as directed. Follow up with your regular doctor. GO TO THE ER FOR ANY WORSENING SYMPTOMS Clinical Impressions Clinical Impression: Acute bronchitis Instructions Patient Instructions: Acute Bronchitis, DI for Acute Bronchitis Discharge ED Provider: Ba Maria [facility] General Stated complaint: chest congestion cough Mode of Arrival: Ambulatory Source of Information: Patient Limitations: No Limitations Time Seen by Provider: 02/11/24 13:09 Description of Symptoms (Recalled from Triage Doc. by RN): PATIENT C/O COUGH X 3 WEEKS. HE STATES HE WAS SEEN 3 WEEKS AGO AND GIVEN ANTIBIOTIC AND STEROIDS AND WAS BETTER, BUT HIS COUGH RETURNED HEENT Symptoms (Recalled from RN notes): No Resp Symptoms (Recalled from RN notes): Yes Skin Symptoms (Recalled from RN notes): No MS Symptoms (Recalled from RN notes): No Functional Status (Recalled from RN notes): WNL Related Data Home Medications Medication Instructions Recorded Confirmed hydrochlorothiazide 25 mg tablet 25 mg PO DAILY 02/11/24 02/11/24 lisinopril 40 mg tablet 40 mg PO DAILY 02/11/24 02/11/24 potassium chloride 10 mEq 10 meq PO DAILY 02/11/24 02/11/24 tablet,extended release Previous Rx's Medication Instructions Recorded blood sugar diagnostic (Blood #50 ea 02/04/23 Glucose Test strips) blood-glucose meter (Blood Glucose #1 ea 02/04/23 Monitoring kit) lancets (Accu-Chek Softclix #100 ea 02/04/23 Lancets) amoxicillin 875 mg tablet 875 mg PO Q12H #20 tabs 02/11/24 benzonatate 100 mg capsule 100 mg PO TIDP PRN Cough #30 caps 02/11/24 guaifenesin 600 mg tablet, 600 - 1,200 mg (1 - 2 x 600 mg) PO 02/11/24 extended release 12 hr (Mucinex) BIDP PRN Congestion #30 tabs methylprednisolone 4 mg tablets in 4 mg PO DIRECTED 6 days #21 tabs 02/11/24 a dose pack oseltamivir 75 mg capsule (Tamiflu) 75 mg PO BID #10 caps 02/11/24 Allergies Allergy/AdvReac Type Severity Reaction Status Date / Time No Known Allergies Allergy Verified 06/07/23 15:28 Worker's Comp Is this a Worker's Comp case?: No [facility] Disclaimer: The information contained in this section may have been updated after the patient was seen, as this information can be updated by other users. Medical History Gout Hyperlipidemia Hypertension Prediabetes Type 2 diabetes mellitus Surgical History History of cholecystectomy History of tonsillectomy Social History Smoking Status: Unknown if ever smoked alcohol intake: never current occupational status: other Travel in the last 8 weeks: None ROS Obtained: Yes All systems reviewed & no additional complaints except as documented Constitutional Constitutional: Reports chills and Reports fever(s) Eyes Eyes: Denies eye discharge ENT Ears, Nose, Mouth, and Throat: Reports as per HPI Cardiovascular Cardiovascular: Denies chest pain Respiratory Respiratory: Denies chest congestion and Reports cough Gastrointestinal Gastrointestingal: Reports nausea; Denies abdominal pain, constipation, cramping, diarrhea or vomiting Musculoskeletal Musculoskeletal: Denies arthralgias Integumentary/Breasts Skin/Breast: Denies rash Neurologic Neurologic: Denies paresthesias Physical Exam General General appearance: alert and in no apparent distress Eye Eye exam: Present normal appearance, PERRL and EOMI ENT ENT exam: Present mucous membranes moist and normal external ear exam Expanded ENT Exam External ear exam: Present normal external inspection TM/Canal exam: Bilateral TM: erythema and bulging Nose exam: Absent sinus tenderness Nasal speculum exam: Bilateral: normal Mouth exam: Present normal external inspection; Absent drooling Teeth exam: Present normal inspection Throat exam: Present tonsillar erythema and tonsillomegaly Neck Neck exam: Present normal inspection, full ROM and trachea midline; Absent tenderness, lymphadenopathy or thyromegaly Chest Chest inspection: Present normal inspection and symmetric chest wall rise; Absent tenderness or rash Respiratory Respiratory exam: Present normal lung sounds bilaterally; Absent respiratory distress, wheezes, stridor or accessory muscle use Cardiovascular Cardiovascular exam: Present regular rate, normal rhythm and normal heart sounds Abdominal Exam Abdominal exam: Present soft; Absent distention, tenderness, guarding, rebound or rigidity Extremities Exam Extremities exam: Present normal inspection, full ROM and normal capillary refill; Absent tenderness or calf tenderness Back Exam Back exam: Present normal inspection and full ROM; Absent tenderness Neurological Exam Neurological exam: Present alert and oriented X3 Psychiatric Psychiatric exam: Present normal affect and normal mood Skin Skin exam: Present warm, dry, intact and normal color Lymphatic Lymphatic Findings: no adenopathy Medical Decision Making Medical Records Medical records reviewed: No I reviewed the patient's medical records. Fortunato Inquiry Pt receiving controlled substance: No Vital Signs: 02/11/24 12:35 Temperature 98.2 F Temperature Source Oral Pulse Rate [Right Brachial] 68 Respiratory Rate 20 Blood Pressure [Right Arm] 152/82 H Blood Pressure Mean [Right Arm] 105 Blood Pressure Source [Right Arm] Automatic Cuff Blood Pressure Position [Right Arm] Sitting 02 Sat by Pulse Oximetry 95 Oxygen Delivery Method Room Air Orders (Tests/Meds): ORDERS Category Date Time Status Rapid PCR Covid and Flu A/B Stat Lab 02/11/24 13:09 Ordered
[2024-02-11 13:10] VITALS: BP 152/82; PULSE 68; RESP 20; TEMP 36.8; O2SAT 95
[2024-02-11 13:18] LABS: Coronavirus 19, PCR Not Detected (NotDetected); Influenza B, PCR Not Detected (NotDetected)
[2024-02-11 14:42] LABS: Influenza A, PCR Detected (NotDetected)
--- NOTE | 2024-02-11 19:00 | PC.NURSE ---
ATTEMPTED TO CALL PATIENT AND NOTIFY HIM OF POSITIVE FLU A, NO ANSWER. VOICE MESSAGE LEFT
--- NOTE | 2024-02-11 19:08 | PC.NURSE ---
NOTIFIED PATIENT OF POSITIVE FLU A RESULT AT THIS TIME. ADVISED PATIENT THAT TAMIFLU WILL BE SENT IN BY Ari BRANDON APRN
== END 2024-02-11 13:14 | disposition home or self-care (01) ==
PROVIDERS: Emergency Provider Nurse Practitioner Family; PCP Family Medicine
DX: J09.X2 Influenza due to identified novel influenza A virus with other respiratory manifestations (principal); J20.8 Acute bronchitis due to other specified organisms; R05.1 Acute cough
CPT/HCPCS: 87636; 99212; 99214; G0463

== ENCOUNTER 2024-11-17 12:10 | Outpatient (CLI) | payer BC, SELFPAY ==
--- OUTSIDE RECORDS SUMMARY | 2024-11-17 12:12 | XMS_ITS | Continuity of Care Document ---
Author Organization [facility] Address [address] [place] [address] Care Team Providers Care Map Mounter Name Role Phone FRANCESCO PATTONIAN Primary Care Provider [phone] Assessment No assessment recorded. Plan of Treatment Reminders Order Date Submit Date Provider Last Modified By Organization Details Last Modified Time Details Appointments OV EST 15 2024 03:45P M Eva Rolle NP Not available Not available Not available Lab None recorded. Referral None recorded. Procedures None recorded. Surgeries None recorded. Imaging None recorded. Medication Orders Xyosted 75 mg/0.5 mL subcutane ous auto-inje ctor 2024 025 [facility], [address] [place] [address] , [address], [place], [place], [phone], 10/19/2024 15:58:59 Patient TargetsNo targets recorded. Patient InstructionsNo instructions recorded. Reason for Referral None Reported. Problems Name Problem SNOMED Code Status Onset Date Resolution Date Notes Provider Name and Address Organization Details Recorded Time Hypercholester olemia 62845432 Active 2024 Danielle Crase null, [place] - [place] [facility] & [place] 5 11:52:58 Sleep apnea 06682533 Active 2024 [facility] [place] 5 11:53:05 Testosterone level below reference range 478680016 Active 2024 [facility] [place] 5 11:53:17 Problem Notes None recorded. Procedures Surgical History Date Name Laterality Status Provider Name and Address Organization Details Recorded Time extraction of wisdom tooth completed Danielle Hearn [place] - [facility] & [place] 08/22/2024 11:53:51 cholecystectomy completed Danielle Rawls [place] - [place] [facility] & [place] 08/22/2024 11:53:59 Imaging Results None recorded. Procedure Notes None recorded. Medical Equipment None Reported. Allergies No known drug allergies Medications Name Sig Start Date Stop Date Status Note LastModified by Organization Details LastModified Time lisinopril 20 mg tablet TAKE 1 TABLET BY MOUTH TWICE DAILY active Not Available Not Available No t Available potassium chloride ER 10 mEq tablet,exte nded release TAKE 1 TABLET BY MOUTH ONCE DAILY WITH FOOD active Not Available Not Available No t Available amoxicillin 875 mg tablet TAKE 1 TABLET BY MOUTH EVERY 12 HOURS 08/22 completed Not Available Not Available Not Available tamsulosin 0.4 mg capsule TAKE 1 CAPSULE BY MOUTH ONCE DAILY active Not Available Not Available No t Available benzonatate 100 mg capsule TAKE 1 CAPSULE BY MOUTH THREE TIMES DAILY NEEDED FOR COUGH 11/16 completed Not Available Not Available Not Available allopurinol 300 mg tablet TAKE 1 TABLET BY MOUTH ONCE DAILY active Not Available Not Available No t Available hydrochloro thiazide 25 mg tablet TAKE 1 TABLET BY MOUTH ONCE DAILY IN THE MORNING active Not Available Not Available No t Available testosteron e cypionate 200 mg/mL intramuscul ar oil INJECT 1ML INTRAMUSC ULARLY EVERY 10 DAYS 08/22 completed Not Available Not Available Not Available methylpredn isolone 4 mg tablets in a dose pack TAKE BY MOUTH DIRECTED ON INSIDE OF PACKAGE 08/22 completed Not Available Not Available Not Available doxycycline hyclate 20 mg tablet TAKE 1 TABLET BY MOUTH TWICE DAILY 08/22 completed Not Available Not Available Not Available lisinopril 40 mg tablet TAKE 1 TABLET BY MOUTH ONCE DAILY 11/16 completed Not Available Not Available Not Available fluticasone propionate 50 mcg/actuati on nasal spray,suspe nsion USE 1 SPRAY(S) IN EACH NOSTRIL ONCE DAILY 11/16 completed Not Available Not Available Not Available amoxicillin 875 mg-potassiu m clavulanate 125 mg tablet TAKE 1 TABLET BY MOUTH EVERY 12 HOURS 11/16 completed Not Available Not Available Not Available fenofibrate 160 mg tablet TAKE 1 TABLET BY MOUTH ONCE DAILY active Not Available Not Available No t Available Mucus Relief ER 600 mg tablet, extended release TAKE 1 TO 2 TABLETS BY MOUTH TWICE DAILY NEEDED FOR CONGESTIO N 11/16 completed Not Available Not Available Not Available Xyosted 75 mg/0.5 mL subcutaneou s auto-inject or Inject 75 mg every week by subcutane ous route for 30 days. 2024 active Not Available Not Available Not Avai lable Ozempic 0.25 mg or 0.5 mg (2 mg/3 mL) subcutaneou s pen injector INJECT 0.5MG SUBCUTANE OUSLY ONCE A WEEK active Not Available Not Available No t Available Vitals Date Recorded Body height Body mass index (BMI) Body weight Systolic blood pressure Diastolic blood pressure Provider Name and Address Organization Details Last Updated DateTime 10/19/2024 185.42 cm 39.9 kg/m2 961487.6 1 g 140 mm[Hg] 82 mm[Hg] Amanda Guerrero [facility] & [place] 15:37:05 Social History Question Answer Notes LastModified by Organizat ion Details LastModified Time Tobacco Smoking Status [facility] [place] 08/22/2024 11:53:43 What Is Your Level Of Alcohol Consumption? None Information not available 08/22/2024 Do You Use Any Illicit Or Recreational Drugs? No Information not available 08/22/2024 Sex: Unknown Functional Status None recorded. Mental Status None recorded. Family History Relationship Description Onset Age of this Age Resolved Age Notes LastModified by Organization Details LastModified Time Mother Hypertensive disorder pt. added direct ly (08/20) [email or web address] Not available 08/20/2024 10:16:01 Father Hypertensive disorder pt. added direct ly (08/20) [email or web address] Not available 08/20/2024 10:16:01 Paternal Grandmother Hypertensive disorder pt. added direct ly (08/20) [email or web address] Not available 08/20/2024 10:16:01 Paternal Grandfather Hypertensive disorder pt. added direct ly (08/20) [email or web address] Not available 08/20/2024 10:16:01 Maternal Grandmother Disorder of endocrine system pt. added direct ly (08/20) [email or web address] Not available 08/20/2024 10:16:13 Medical History No medical history recorded. Past Encounters Encounter ID Performer Location Encounter Start Date Encounter Closed Date Diagnosis/Indication Diagnosis SNOMED-CT Code Diagnosis ICD10 Code Diagnosis Note [id number] Eva Rolle NP, [facility] [place] [address] 10/19/2024 15:07:53 10/19/2024 15:56:14 Testosterone level below reference range 576079693 R89.1 Continue Xyosted 75mg weekly4 week telephone for Testostero ne Refills Health Concerns Section Related Observation LastModified by Organization Detai ls LastModified Time None Recorded Concern Status LastModified by Organization Details LastModified Time None Recorded Payers Encounter Date Sequence Insurance Name Policy Number Policy Jacobsen Covered Member ID Jacobsen Member ID Guarantor Name 10/19/2024 1 [employer] [employer] [place] Aunt Kitchen (PPO) [id number] Ras Yuan [id number] Ras Yuan Notes Date Note Type Note Provider Name and Address Organization Details Recorded Time 10/19/2024 text/html 10/19/2024 Pt RTC for f/u of Low Testosterone. At last visit on 09/12/2024 pt was started on Xyosted 75mg weekly. States he has not noticed a difference since starting the medication. States not having any issues administering the injection. 09/12/2024 I have conducted a phone consultation with this patient. I identified the patient by name and date. He gives me verbal consent to proceed with a phone consultation. My consultation begins at 11:00 AM and ended at 11:18 AM.Spent 15 minutes in Audio only visit performed at patient? s request due to cant use A/V or be seen in person. Patient is at home and provider is at the office. Telephone visit to discuss labwork regarding low Testosterone. Recent labwork on 08/26/2024 revealed Total Testosterone 144, Estradiol 28.1, SHBG 14.7, LH 4.8, FSH 5.5, Prolactin 5.1 Triglycerides 186, Cholesterol 186, HDL 41, RBC 5.3, Hgb 15.1, Hct 47.3 and PSA 0.5 08/22/2024 53 yowm presents to clinic for evaluation of Low Testosterone. Total Testosterone 135 on 07/13/2024. Patient reports he has a longstanding history of low testosterone. Patient reports he was started on HRT approximately 2-3 years ago his last injection was approximately 1 year ago. Patient reports he has been experiencing fatigue, weight gain of 30 lb in the past year, and low libido. He denies any history of AR, CVA or blood clots. Denies any family history of AR, CVA or blood clots. Reports urinary stream is occasionally weak. Reports he does have some postvoid dribbling. Nocturia times 1-2. Bowels move regularly. He denies any dysuria gross hematuria. Denies any history of UTIs or kidney stones. Denies any family history of prostate cancer. Patient reports he is 3 kids and does not want any kids in the future. 08/26/2024: Total Testosterone 144, Estradiol 28.1, SHBG 14.7, LH 4.8, FSH 5.5, Prolactin 5.1 Triglycerides 186, Cholesterol 186, HDL 41, RBC 5.3, Hgb 15.1, Hct 47.3 and PSA 0.512/07/2024: BUN 23, Creat 1.45, Total Testosterone 1359/04/2024: Total Testosterone 98.30 Eva Rolle, [employer], [address], [place], [address], [facility] - [place] & [place] 10/19/2024 15:59:16
--- OUTSIDE RECORDS SUMMARY | 2024-11-17 12:12 | XMS_ITS | Continuity of Care Document ---
Author Organization [facility] Phone Care Team Providers Care Railroad Construction Director Name Role Phone YAMIL ENGLAND Unavailable PATRICK CHAMPION Primary Attending Unavailable PATRICK CHAMPION Admitting Unavailable SAMANTA, YAMIL Primary Care RESULTS Patient: REBEKAH CORONADO Date of : [birth year] 0 6 LABORATORY RESULTS ORDER 100: TESTOSTERONE TOTA L (LOINC: 2986-8) ORDER DATE: August 26, 2024 2:06:00 PM UTC Specimen Source: SERUM Specimen Type: Serum specime n PERFORMING LAB: [address] [id number] Result Comment: August 27, 2024 1:08:00 PM [facility] Adult male reference interval is based on a population of Result Comment: August 27, 2024 1:08:00 PM [facility] healthy nonobese males (BMI <30) between 19 and 39 years Result Comment: August 27, 2024 1:08:00 PM UT old. cheri Babin.al. JCEM 2017,102;[id number]. PMID: Result Comment: August 27, 2024 1:08:00 PM [place] [id number]. Result Comment: August 27, 2024 1:08:00 PM UTC Performed at: [facility] Result Comment: August 27, 2024 1:08:00 PM [place] [address], [place] [id number] Result Comment: August 27, 2024 1:08:00 PM [facility] Lithography Contact Worker: Junior East PhD, Phone: [phone] Result Comment: August 27, 2024 1:08:00 PM UT Final Result Date: August 26, 2024 2:06:00 PM UT (TECH: LAB) LOINC TEST FLAG RESULT REFERENCE RANGE UPDA ZAID BY 2986-8 Testosterone [Mass/volume] in Serum or Plasma L 144 ng/dL 264-916 August 26, 2024 2:06:00 PM UT (TECH: LAB) ORDER 200: LIPID PANEL (LOIN C: 82639-1) ORDER DATE: August 26, 2024 2:06:00 PM UTC Specimen Source: PLASMA Specimen Type: Plasma specim en PERFORMING LAB: [address] [id number] Result Comment: Final Result Date: August 26, 2024 3:22:00 PM UT (TECH: DTR) LOINC TEST FLAG RESULT REFERENCE RANGE UPDA ZAID BY 2571-8 Triglyceride [Mass/volume] in Serum or Plasma N 186 mg/dl 30 mg/dl - 200 mg/dl August 26, 2024 3:22:00 PM UTC (TECH: DTR) 2093-3 Cholesterol [Mass/volume] in Serum or Plasma N 186 mg/dl 0 mg/dl - 200 mg/dl August 26, 2024 3:22:00 PM UTC (TECH: DTR) 14226-5 Cholesterol in HDL [Mass or Moles/volume] in Serum or Plasma N 41 mg/dL 40 mg/dL - 104 mg/dL August 26, 2024 3:22:00 PM UTC (TECH: DTR) 30073-1 Cholesterol in LDL [Mass/volume] in Serum or Plasma by calculation N 108 mg/dL 0 mg/dL - 130 mg/dL August 26, 2024 3:22:00 PM UT (TECH: DTR) ORDER 300: ESTRADIOL (LOINC: 2243-4) ORDER DATE: August 26, 2024 2:06:00 PM UTC Specimen Source: SERUM Specimen Type: Serum specime n PERFORMING LAB: [address] [id number] Result Comment: August 27, 2024 1:08:00 PM UTC [employer] ECLIA methodology Result Comment: August 27, 2024 1:08:00 PM UT Performed at: [facility] Result Comment: August 27, 2024 1:08:[address] [id number] Result Comment: August 27, 2024 1:08:00 PM [facility] Lithography Contact Worker: Junior East PhD, Phone: [phone] Result Comment: August 27, 2024 1:08:00 PM UTC Final Result Date: August 27, 2024 2:06:00 PM UTC (TECH: LAB) LOINC TEST FLAG RESULT REFERENCE RANGE UPDA ZAID BY 2243-4 Estradiol (E2) [Mass/volume] in Serum or Plasma N 28.1 pg/mL 7.6-42.6 August 27, 2024 2:06:00 PM UTC (TECH: LAB) ORDER 400: CBC NO DIFF HEMOG KRISTY (LOINC: 91489-8) ORDER DATE: August 26, 2024 2:06:00 PM UTC Specimen Source: EDTA Specimen Type: Blood specime n with EDTA PERFORMING LAB: [address] [id number] Result Comment: Final Result Date: August 26, 2024 2:20:00 PM UTC (TECH: Flock2) LOINC TEST FLAG RESULT REFERENCE RANGE UPDA ZAID BY 6690-2 Leukocytes [#/volume ] in Blood by Automated count N 7.7 K/ul 4.0 K/ul - 10.5 K/ul August 26, 2024 2:20:00 PM UTC (TECH: KB2) 789-8 Erythrocytes [#/volume] in Blood by Automated count N 5.3 M/mm3 4.7 M/mm3 - 6.1 M/mm3 August 26, 2024 2:20:00 PM UTC (TECH: KB2) 718-7 Hemoglobin [Mass/volume] in Blood N 15.1 gm/dl 13.5 gm/dl - 18.0 gm/dl August 26, 2024 2:20:00 PM UTC (TECH: KB2) 98106-1 Hematocrit [Volume Fraction] of Blood N 47.3 % 42.0 % - 52.0 % August 26, 2024 2:20:00 PM UTC (TECH: KB2) 787-2 Erythrocyte mean corpuscular volume [Entitic volume] by Automated count N 89.1 fl 78 fl - 100 fl August 26, 2024 2:20:00 PM UTC (TECH: KB2) 785-6 Erythrocyte mean corpuscular hemoglobin [Entitic mass] by Automated count N 28.4 pg 27 pg - 31 pg August 26, 2024 2:20:00 PM UTC (TECH: KB2) 786-4 Erythrocyte mean corpuscular hemoglobin concentration [Mass/volume] by Automated count L 31.9 g/dl 32 g/dl - 36 g/dl August 26, 2024 2:20:00 PM UTC (TECH: PlayScape) 78241-7 Erythrocyte distribution width [Ratio] N 13.6 % 11.5 % - 14.0 % August 26, 2024 2:20:00 PM UTC (TECH: PlayScape) 777-3 Platelets [#/volume] in Blood by Automated count N 230 K/ul 150 K/ul - 450 K/ul August 26, 2024 2:20:00 PM UTC (TECH: PlayScape) 22385-2 Platelet mean volume [Entitic volume] in Blood by Automated count H 10.3 fl 6 fl - 9.5 fl August 26, 2024 2:20:00 PM UTC (TECH: PlayScape) 05695-6 Manual Differential panel - Blood N NO August 26, 2024 2:20:00 PM UTC (TECH: PlayScape) ORDER 500: PROLACTIN (LOINC: 2842-3) ORDER DATE: August 26, 2024 2:06:00 PM UTC Specimen Source: SERUM Specimen Type: Serum specime n PERFORMING LAB: [address] [id number] Result Comment: August 27, 2024 1:08:00 PM UTC Performed at: [facility] Result Comment: August 27, 2024 1:08:00 PM UTC [address], [place] [id number] Result Comment: August 27, 2024 1:08:00 PM UTC Lithography Contact Worker: Junior East PhD, Phone: [phone] Result Comment: August 27, 2024 1:08:00 PM UTC Final Result Date: August 27, 2024 2:06:00 PM UTC (TECH: LAB) LOINC TEST FLAG RESULT REFERENCE RANGE UPDA ZAID BY 2842-3 Prolactin [Mass/volume] in Serum or Plasma N 5.1 ng/mL 3.6-25.2 August 27, 2024 2:06:00 PM UTC (TECH: LAB) ORDER 600: FSH (LOINC: 41270 -2) ORDER DATE: August 26, 2024 2:06:00 PM UTC Specimen Source: SERUM Specimen Type: Serum specime n PERFORMING LAB: [address] [id number] Result Comment: August 27, 2024 1:08:00 PM UTC Performed at: [facility] Result Comment: August 27, 2024 1:08:00 PM UTC [address] [place] [id number] Result Comment: August 27, 2024 1:08:00 PM UTC Lithography Contact Worker: Junior East PhD, Phone: [phone] Result Comment: August 27, 2024 1:08:00 PM UTC Final Result Date: August 27, 2024 2:06:00 PM UTC (TECH: LAB) LOINC TEST [place] [address]-5 Follitropin [Units/volume] in Serum or Plasma N 5.5 mIU/mL 1.5-12.4 August 27, 2024 2:06:00 PM UTC (TECH: LAB) ORDER 700: LUTEINIZING HORMO NE (LOINC: 67461-6) ORDER DATE: August 26, 2024 2:06:00 PM UTC Specimen Source: SERUM Specimen Type: Serum specime n PERFORMING LAB: [address] [id number] Result Comment: August 27, 2024 1:08:00 PM UTC Performed at: [facility] Result Comment: August 27, 2024 1:08:00 PM UTC [address] [place] [phone] Result Comment: August 27, 2024 1:08:00 PM UTC Lithography Contact Worker: Junior East PhD, Phone: [phone] Result Comment: August 27, 2024 1:08:00 PM UTC Final Result Date: August 27, 2024 2:06:00 PM UTC (TECH: LAB) LOINC TEST [place] [address]-0 Lutropin [Units/volume] in Serum or Plasma N 4.8 mIU/mL 1.7-8.6 August 27, 2024 2:06:00 PM UTC (TECH: LAB) ORDER 800: SEX HORMONE PAT NG GLOBULIN (LOINC: 97242-3) ORDER DATE: August 26, 2024 2:06:00 PM UTC Specimen Source: SERUM Specimen Type: Serum specime n PERFORMING LAB: [address] [id number] Result Comment: August 27, 2024 1:08:00 PM UTC Performed at: [facility] Result Comment: August 27, 2024 1:08:00 PM UTC [address] [place] [phone] Result Comment: August 27, 2024 1:08:00 PM UTC Lithography Contact Worker: Junior East PhD, Phone: [phone] Result Comment: August 27, 2024 1:08:00 PM UTC Final Result Date: August 27, 2024 2:06:00 PM UTC (TECH: LAB) LOINC TEST FLAG [place] [address]-8 Sex hormone binding globulin [Moles/volume] in Serum or Plasma L 14.7 nmol/L 19.3-76.4 August 27, 2024 2:06:00 PM UTC (TECH: LAB) ORDER 900: PROSTATE SPECIFIC AG PSA (LOINC: 2857-1) ORDER DATE: August 26, 2024 2:06:00 PM UTC Specimen Source: PLASMA Specimen Type: Plasma specim en PERFORMING LAB: [address] [id number] Result Comment: Final Result Date: August 26, 2024 3:22:00 PM UTC (TECH: DTR) LOINC TEST FLAG RESULT REFERENCE RANGE UPDA ZAID BY 2857-1 Prostate specific Ag [Mass/volume] in Serum or Plasma N 0.5 ng/mL 0 ng/mL - 4.0 ng/mL August 26, 2024 3:22:00 PM UTC (TECH: DTR) LABORATORY NARRATIVE RESULTS Information is not available RADIOLOGY RESULTS Information is not available PATHOLOGY NARRATIVE RESULTS Information is not available MICROBIOLOGY RESULTS No Micro Labs/Results Exist for Patient BLOOD ADMIN RESULTS Information is not available MEDICATIONS HOME MEDICATIONS Status RXNORM NDC Medication Dose Route Frequency Dates Comments Reported By Updated By Drug Treatment Unknown DISCHARGE MEDICATIONS Status RXNORM NDC Medication Dose Route Frequency Dates Comments Physician Updated By No Discharge Medication Info rmation Available INPATIENT MEDICATIONS Status RXNORM NDC Medication Dose Route Frequency Rat e Quantity Dates Comments Physician Updated By No Inpatient Medication Info rmation Available SOCIAL HISTORY SOCIAL HISTORY SNOMED-CT Social History Element Description Effective Dates Offered Cessation Comment UpdatedBy [id number] Smoking Status Unknown If Ever Smoked SOCIAL HISTORY - Gender Sex: Male SOCIAL HISTORY - Status : status i nformation is not available Intention in Next Year: intention information is not available SOCIAL HISTORY - Sexual Behavior Sexual Orientation Gender Identity SNOMED-CT Description SNO MED -CT Description Activity Level No of Partners Partner Type UpdatedBy Information is not available HEALTH CONCERNS Problems Concern Status Health Concern problem infor mation not available. Smoking Status Status Years Used Consumed packs p er day Health Concern smoking histo ry information not available. Family History Concern Status Health Concern family histor y information not available. ENCOUNTERS ENCOUNTER INFORMATION Reason for Visit LABS Admission August 26, 2024 1:43:[address] [id number] Discharge August 26, 2024 1:43:00 PM [facility] DISCHARGED TO HOME OR SELF CARE ENCOUNTER DIAGNOSES Notes information is not juma ilable. Code System Diagnosis Onset Date Diagnosis information is not available. ABSTRACT DIAGNOSES Code System Diagnosis Updated By Z12.5 ICD10 ENCOUNTER FOR SC REENING FOR MALIGNANT NEOPLASM OF PROSTATE [id number] on August 29, 2024 5:07:10 AM [facility] R89.1 ICD10 ABNORMAL LEVEL O F HORMONES IN SPECIMENS FROM OTHER ORGANS, SYSTEMS AND TISSUES [id number] on August 29, 2024 5:07:10 AM [facility] Z12.5 ICD10 ENCOUNTER FOR SC REENING FOR MALIGNANT NEOPLASM OF PROSTATE [id number] on August 29, 2024 5:07:10 AM [facility] R89.1 ICD10 ABNORMAL LEVEL O F HORMONES IN SPECIMENS FROM OTHER ORGANS, SYSTEMS AND TISSUES [id number] on August 29, 2024 5:07:10 AM [facility] CARE TEAM Care Railroad Construction Director Role YAMIL ENGLAND Referring PATRICK CHAMPION Primary Attending PATRICK CHAMPION Admitting YAMIL ENGLAND Primary Care CARE TEAM CARE station mechanic helper Role on Team Status Start Date End Date Update d By SAMANTA MARCH Referring normal August 26, 2024 5:00:00 AM [facility] August 26, 2024 1:43:00 PM [facility] [id number] on August 26, 2024 1:46:32 PM [facility] RAGLE PATRICK P Attending normal August 26 5:00:00 AM [facility] August 26, 2024 1:43:00 PM [facility] [id number] on August 26, 2024 1:46:32 PM [facility] JAYCEE Forrest Admitting normal August 26 5:00:00 AM [facility] August 26, 2024 1:43:00 PM [facility] [id number] on August 26, 2024 1:46:32 PM [facility] SAMANTA MARCH PCP normal August 26, 2024 5:00:00 AM [facility] August 26, 2024 1:43:00 PM [facility] [id number] on August 26, 2024 1:46:32 PM [facility]
--- OUTSIDE RECORDS SUMMARY | 2024-11-17 12:12 | XMS_ITS | Data Portability ---
Author Organization [facility] & [place] [facility] ADMIN Address [address] [place] [id number] Care Team Providers Care Icing Machine Operator Name Role Phone REBECCA PATTON Primary Care Provider Assessment No assessment recorded. Plan of Treatment Reminders Order Date Submit Date Provider Last Modified By Organization Details Last Modified Time Details Appointments OV EST 15 2024 03:45P M Eva Rolle NP Not available Not available Not available Lab PSA, total, serum or plasma 2024 025 [facility] (Registration ), [address] [place], [address], 08/22/2024 10:30:42 testoster one, total, serum 2024 025 [facility] (Registration ), [address] [place], [address], 08/27/2024 08:10:06 lipid panel, serum 2024 025 [facility] (Registration ), [address] [place], [address], 08/22/2024 10:30:42 estradiol , serum 2024 025 [facility] (Registration ), [address] [place], [address], 08/22/2024 10:30:41 CBC 2024 025 [facility] (Registration ), [address], [place], [address], 08/22/2024 10:30:42 prolactin , serum 2024 025 [facility] (Registration ), [address] [place], [address], 08/27/2024 08:10:14 FSH (follicle -stimulat ing hormone), serum 2024 025 [facility] (Registration ), [address] [place], [address], 08/27/2024 08:10:10 lh (luteiniz ing hormone), serum 2024 025 [facility] (Registration ), [address] [place], [address], 08/27/2024 08:10:08 shbg (sex hormone-b inding globulin) , serum 2024 025 [facility] (Registration ), [address] [place], [address], 08/27/2024 08:10:12 Referral None recorded. Procedures None recorded. Surgeries None recorded. Imaging None recorded. Medication Orders Xyosted 75 mg/0.5 mL subcutane ous auto-inje ctor 2024 025 [facility], [facility] , [address], [place], [place], [id number], 11/16/2024 13:30:12 Xyosted 75 mg/0.5 mL subcutane ous auto-inje ctor 2024 025 [facility], [facility] [address], [address], [place], [place], [id number], 10/19/2024 15:58:59 Xyosted 75 mg/0.5 mL subcutane ous auto-inje ctor 2024 025 [facility], [address] [facility] , [address], [place], [place], [id number], 09/12/2024 11:25:01 tamsulosi n 0.4 mg capsule 2024 025 [facility], [address], [address], 08/22/2024 10:35:00 Patient TargetsNo targets recorded. Patient InstructionsNo instructions recorded. Reason for Referral None Reported. Results Created Date Observation Date Name Description Value Unit Range Abnormal Flag Note LastModifiedBy Organization Detail LastModifiedTime 08/26/1908/26/2024 CBC NO DIFF (HEMO GRAM) WBC 7.7 K/uL 4.0-10 .5 Not Available [facility] ([facility]) [address] [place], [address], 08/26/2024 09:21:59 08/26/19 25 08/26/2024 CBC NO DIFF (HEMO GRAM) RBC 5.3 M/mm3 4.7-6. 1 Not Available [facility] ([facility]) [address], [place], [address], 08/26/2024 09:21:59 08/26/19 25 08/26/2024 CBC NO DIFF (HEMO GRAM) HGB 15.1 gm/dL 13.5-1 8.0 Not Available [facility] ([facility]) [address] [place], [address], 08/26/2024 09:21:59 08/26/19 25 08/26/2024 CBC NO DIFF (HEMO GRAM) HCT 47.3 % 42.0-5 2.0 Not Available [facility] ([facility]) [address] [place], [address], 08/26/2024 09:21:59 08/26/19 25 08/26/2024 CBC NO DIFF (HEMO GRAM) MCV 89.1 fL 78-100 Not Available [facility] ([facility]) [address], [place], [address], 08/26/2024 09:21:59 08/26/19 25 08/26/2024 CBC NO DIFF (HEMO GRAM) MCH 28.4 pg 27-31 Not Available [facility] ([facility]) [address], [place], [address], 08/26/2024 09:21:59 08/26/1908/26/2024 CBC NO DIFF (HEMO GRAM) MCHC 31.9 g/dL 32-36 low Not Available [facility] ([facility]) [address], [place], [address], 08/26/2024 09:21:59 08/26/19 25 08/26/2024 CBC NO DIFF (HEMO GRAM) RDW 13.6 % 11.5-1 4.0 Not Available [facility] ([facility]) [address] [facility], [place], [address], 08/26/2024 09:21:59 08/26/19 25 08/26/2024 CBC NO DIFF (HEMO GRAM) platelet count 230 K/uL 150-45 0 Not Available [facility] ([facility]) [address] [facility], [place], [address], 08/26/2024 09:21:59 08/26/1908/26/2024 CBC NO DIFF (HEMO GRAM) MPV 10.3 fL 6-9.5 high Not Available [facility] ([facility]) [address] [facility], [place], [address], 08/26/2024 09:21:59 08/26/19 25 08/26/2024 CBC NO DIFF (HEMO GRAM) manual differential NO Not Available [facility] ([facility]) [address] [place], [address], 08/26/2024 09:21:59 08/26/19 25 08/26/2024 LIPID PANEL triglyceride 186 mg/dL 30-200 Not Available [facility] ([facility]) [address] [place], [address], 08/26/2024 10:23:58 08/26/19 25 08/26/2024 LIPID PANEL cholesterol 186 mg/dL 0-200 Not Available [facility] ([facility]) [address] [place], [address], 08/26/2024 10:23:58 08/26/19 25 08/26/2024 LIPID PANEL HDL 41 mg/dL 40-104 Not Available [facility] ([facility]) [address] [place], [address], 08/26/2024 10:23:58 08/26/19 25 08/26/2024 LIPID PANEL LDL calculated 108 mg/dL 0-130 Not Available [facility] ([facility]) [address] [place], [address], 08/26/2024 10:23:58 08/26/19 25 08/26/2024 PROST ATE SPECI FIC AG (PSA) prostate specific Ag (PSA) 0.5 NG/mL 0-4.0 Not Available [facility] ([facility]) [address] [place], [address], 08/26/2024 10:23:59 08/26/19 25 08/27/2024 TESTO STERO NE TOTAL testosterone , serum 144 NG/dL 264-91 6 low Adult male refer ence inter rika is based on a popul ation of healt hy nonob arelis males (BMI <30) betwe en 19 and 39 years old. Jose Antonio mabry et.al . JCEM 2017, 102;1 161-1 173. PMID: 98466 103. Perfo rmed at: [facility] [address] [place] [address] Lab Direc tor: Donavan prado PhD, Phone : [phone] Not Available [facility] ([facility]) [address] [place], [address], 08/27/2024 08:10:06 08/26/19 25 08/27/2024 LUTEI OVIDIO G HORMO NE luteinizing hormone (LH), ser 4.8 mIU/m L 1.7-8. 6 Perfo rmed at: [facility] [id number] [place], [place] [id number] Lab Direc tor: Donavan prado PhD, Phone : [phone] Not Available [facility] ([facility]) [address] [place], [address], 08/27/2024 08:10:08 08/26/19 25 08/27/2024 FSH FSH, serum 5.5 mIU/m L 1.5-12 .4 Perfo rmed at: [facility] n [address] [place] [id number] Lab Direc tor: Donavan prado PhD, Phone : [phone] Not Available [facility] ([facility]) [address] [place], [address], 08/27/2024 08:10:10 08/26/19 25 08/27/2024 ESTRA DIOL estradiol 28.1 pg/mL 7.6-42 .6 Iglesia ECLIA metho dolog y Perfo rmed at: [facility] [address] [place] [address] Lab Direc tor: Donavan prado PhD, Phone : [phone] Not Available [facility] ([facility]) [address] [place], [address], 08/27/2024 08:10:11 08/26/19 25 08/27/2024 SEX HORMO NE PAT NG GLOBU NATY sex hormone binding glob, seru 14.7 nmol/ L 19.3-7 6.4 low [facility] at: [facility] [address] [place] [address] Lab Direc tor: Donavan prado PhD, Phone : [phone] Not Available [facility] ([facility]) [address] [facility], [place], [address], 08/27/2024 08:10:12 08/26/1908/27/2024 PROLA CTIN prolactin 5.1 NG/mL 3.6-25 .2 Perfo rmed at: [facility] [address] [place] [address] Lab Direc tor: Donavan prado PhD, Phone : [phone] Not Available [facility] ([facility]) [address] [facility], [place], [address], 08/27/2024 08:10:14 Result Notes None recorded. Problems Name Problem SNOMED Code Status Onset Date Resolution Date Notes Provider Name and Address Organization Details Recorded Time Hypercholester olemia 44393758 Active 2024 Danielle patten, [place] - [facility] - [place] & [place] 11:52:58 Sleep apnea 15315078 Active 2024 Danielle Hearn null, [place] - [facility] [place] 11:53:05 Testosterone level below reference range 915785473 Active 2024 Danielle Hearn null, [place] - [facility] [place] 11:53:17 Problem Notes None recorded. Procedures Surgical History Date Name Laterality Status Provider Name and Address Organization Details Recorded Time extraction of wisdom tooth completed Danielle Hearn [place] - [facility] - [place] & [place] 08/22/2024 11:53:51 cholecystectomy completed Danielle Rawls [place] - [facility] & [place] 08/22/2024 11:53:59 Imaging Results None recorded. Procedure [...] Available Not Available Not Available amoxicillin 875 mg-potabranu m clavulanate 125 mg tablet TAKE 1 [...] height Body mass index (BMI) Body weight Body temperature Oxygen saturation Oxygen saturation in Arterial blood by Pulse oximetry Systolic blood pressure Diastolic blood pressure Provider Name and Address Organization Details Last Updated DateTime 185.42 cm 39.9 kg/m2 419874. 33 g 98.7 [degF] 100 % 100 % 122 mm[Hg] 70 mm[Hg] Danielle Hearn [facility] & [place] 10:15:29 Date Recorded Body height Body mass index (BMI) Body weight Systolic blood pressure Diastolic blood pressure Provider Name and Address Organization Details Last Updated DateTime 10/19/2024 185.42 cm 39.9 kg/m2 228096.6 1 g 140 mm[Hg] 82 mm[Hg] Amanda Guerrero [facility] & [place] 5 15:37:05 Social History Question Answer Notes LastModified by Organizat ion Details LastModified Time Tobacco Smoking Status Never Smoker Danielle Hearn [facility] & [place] 08/22/2024 11:53:43 What Is Your Level Of [...] SNOMED-CT Code Diagnosis ICD10 Code Diagnosis Note [id number] Eva Rolle NP, S [facility]1 00 [address] [facility] [address] [place] [address] 08/22/2024 09:53:10 08/22/2024 10:33:03 Testosterone level below reference range 217288677 R89.1 Get labwork Total Testostero ne, Lipid Panel, FSH, LH, Prolactin, SHBG, Estradiol, Screening PS Hypogonadi sm possible causes and TTX with risks, benefits, and alternativ es discussed. Discussed with pt in great detail about the different testostero ne treatments . Explained to the pt the possible side effects of testostero ne, required office visits necessitat ed for the treatment, and lab work that would need to be monitored. Pt voiced understand ing of all the above. RTC in 2 weeks for f/u of labwork results Slowing of urinary stream 38425784 R39.12 Start Tamsulosin 0.4mg daily. Discussed possible SEs of the medication Screening for malignant neoplasm of prostate 533247486 Z12.5 Erectile dysfunction 860 174307 F52.21 [id number] Eva Rolle NP, S [facility]1 00 [address] [facility] [address] [place] [address] 09/12/2024 11:09:36 09/12/2024 11:25:24 Testosterone level below reference range 430828229 R89.1 Labwork results reviewed and discussed with pt Hypogonadi sm possible causes and TTX with risks, benefits, and alternativ es discussed. Discussed with pt in great detail about the different testostero ne treatments . Explained to the pt the possible side effects of testostero ne, required office visits necessitat ed for the treatment, and lab work that would need to be monitored. Pt voiced understand ing of all the above. Pt would like to start on Xyosted. Start Xyosted 75mg weekly [id number] Eva Rolle NP, S [facility]1 00 [address] [facility] [address] [place] [address] 10/19/2024 15:07:53 10/19/2024 15:56:14 Testosterone level below reference range 405330463 R89.1 Continue Xyosted 75mg weekly4 week telephone for Testostero ne Refills [id number] Eva Rolle NP, S [facility]1 00 [address] [facility] [address] [place] [address] 11/16/2024 13:24:34 11/16/2024 13:37:20 Testosterone level below reference range 639126552 R79.89 Continue Xyosted 75mg weeklylabw ork order to be provided to pt at next visitRT for 90 day Fortunato and Consent Health Concerns Section Related Observation LastModified by Organization Detai ls LastModified Time None Recorded Concern Status LastModified by Organization Details LastModified Time None Recorded Advance Directives Directive None Recorded Payers Encounter Date Sequence Insurance Name Policy Number Policy Jacobsen Covered Member ID Jacobsen Member ID Guarantor Name 08/22/2024 1 [place] [id number] Ras Yuan [id number] Ras Yuan 09/12/2024 1 [place] [id number] Ras Yuan [id number] Ras Yuan 10/19/2024 1 [place] [id number] Ras Yuan [id number] Ras Yuan 11/16/2024 1 [place] [id number] Ras Yuan [id number] Ras Yuan Notes Date Note Type Note Provider Name and Address Organization Details Recorded Time 08/22/2024 text/html 08/22/2024 53 yowm presents to clinic for [...] low libido. He denies any history of IN, CVA or blood clots. Denies any family history of IN, CVA or blood clots. Reports urinary stream is occasionally weak. Reports he does have some postvoid dribbling. Nocturia times 1-2. Bowels move regularly. He denies any dysuria gross hematuria. Denies any history of UTIs or kidney stones. Denies any family history of prostate cancer. Patient reports he is 3 kids and does not want any kids in the future. 07/13/2024 : BUN 23, Creat 1.45, Total Testosterone 1359/04/2024: Total Testosterone 98.30 Eva Rolle NP, S [address] [facility], [place], [address], [facility] - NT [facility] & [place] 08/22/2024 10:37:39 09/12/2024 text/html 09/12/2024 I have conducted a phone consultation [...] low libido. He denies any history of IN, CVA or blood clots. Denies any family history of IN, CVA or blood clots. Reports urinary stream [...] Testosterone 1359/04/2024: Total Testosterone 98.30 Eva Rolle, LINNETTE, [address], [place], [address], [facility] - [place] & [place] 09/12/2024 11:24:06 10/19/2024 text/html 10/19/2024 Pt RTC for f/u [...] low libido. He denies any history of IN, CVA or blood clots. Denies any family history of IN, CVA or blood clots. Reports urinary stream [...] Total Testosterone 1359/04/2024: Total Testosterone 98.30 Eva Rolle NP, S [address], [place], [address], [facility] - [facility] - [place] & [place] 10/19/2024 15:59:16 11/16/2024 text/html 11/16/2024 I have conducted a phone consultation with [...] provider is at the office. Telephone visit for Testosterone Refills. Pt with low Testosterone managed with Xyosted 75mg weekly. States energy level improved. Denies any overt SEs from the medication and states not having any issues with administering the injection. 10/19/2024 Pt RTC for f/u of Low [...] low libido. He denies any history of IN, CVA or blood clots. Denies any family history of IN, CVA or blood clots. Reports urinary stream [...] 5.3, Hgb 15.1, Hct 47.3 and PSA 0.: BUN 23, Creat 1.45, Total Testosterone 1359: Total Testosterone 98.30 Eva Rolle, FOOD STOREROOM CLERK, [address], [place], [address], [facility] & [place] 11/16/2024 13:29:33
--- OUTSIDE RECORDS SUMMARY | 2024-11-17 12:12 | XMS_ITS | Continuity of Care Document ---
Author Organization [facility] & [facility] Address [address] [facility] [address] [place] [address] Care Team Providers Care Quality Assurance Name Role Phone FRANCESCO PATTONIAN Primary Care Provider [phone] Assessment No assessment recorded. Plan of Treatment [...] mL subcutane ous auto-inje ctor 2024 025 [facility], [address] [place] [address] , [address], [place], [place], [phone], 11/16/2024 13:30:12 Patient TargetsNo targets recorded. Patient InstructionsNo instructions recorded. Reason for Referral None Reported. Problems Name Problem SNOMED Code Status Onset Date Resolution Date Notes Provider Name and Address Organization Details Recorded Time Hypercholester olemia 04152860 Active 2024 Danielle Crase null, [place] - [facility] & [place] 5 11:52:58 Sleep apnea 14510992 Active 2024 Danielle Crase null, [place] - [facility] & [place] 5 11:53:05 Testosterone level below reference range 345981760 Active 2024 [facility] [place] 5 11:53:17 Problem Notes None recorded. Procedures Surgical History Date Name Laterality Status Provider Name and Address Organization Details Recorded Time extraction of wisdom tooth completed Danielle Hearn [place] - [facility] & [place] 08/22/2024 11:53:51 cholecystectomy completed Danielle Rawls [place] - [place] [facility] & [place] 08/22/2024 11:53:59 Imaging Results None recorded. Procedure [...] Available Not Available No t Available Vitals None Recorded Social History Question Answer Notes LastModified by Organizat ion Details LastModified Time Tobacco Smoking Status Never Smoker Danielle Hearn [facility], [facility] & [place] 08/22/2024 11:53:43 What Is Your Level Of [...] SNOMED-CT Code Diagnosis ICD10 Code Diagnosis Note [id number] Eva Rolle NP, S [facility]-[address] [place] [address] 10/19/2024 15:07:53 10/19/2024 15:56:14 Testosterone level below reference range 181928619 R89.1 Continue Xyosted 75mg weekly4 week telephone for Testostero ne Refills [id number] Eva Rolle NP, S [facility]-1 00 [address] [facility] [address] [place] [address] 11/16/2024 13:24:34 11/16/2024 13:37:20 Testosterone level below reference range 019507438 R79.89 Continue Xyosted 75mg weeklylabw ork order to be provided to pt at next visitRTC for 90 day Fortun[place] and Consent Health Concerns Section Related Observation LastModified by Organization Detai ls LastModified Time None Recorded Concern Status LastModified by Organization Details LastModified Time None Recorded Payers Encounter Date Sequence Insurance Name Policy Number Policy Jacobsen Covered Member ID Jacobsen Member ID Guarantor Name 11/16/2024 1 [place] [place] [employer] [place] [id number] Ras Yuan [id number] Ras Yuan Notes Date Note Type Note Provider Name and Address Organization Details Recorded Time 11/16/2024 text/html 11/16/2024 I have conducted a [...] low libido. He denies any history of IA, CVA or blood clots. Denies any family history of IA, CVA or blood clots. Reports urinary stream [...] 0.512/07/2024: BUN 23, Creat 1.45, Total Testosterone 1359: Total Testosterone 98.30 Eva Rolle, EX ASSISTANT/PROGRAM DIRECTOR, [address], [place], [address], [facility] - [place] & [place] 11/16/2024 13:29:33
--- NOTE | 2024-11-17 12:15 | XR_ITS ---
FINAL REPORT CLINICAL HISTORY: LBP..no trauma FINDINGS: LUMBAR SPINE 5 views were obtained. There is no acute fracture. Vertebrae are normal height. There is no malalignment. There is mild anterior osteophyte formation at L2-3, L3-4, and L4-5. There is no soft tissue abnormality. IMPRESSION: No acute bony abnormality. Reviewed, Interpreted and Dictated by Will Guevara MD Transcribed by Maria C Shelton Authenticated and [facility]
== END 2024-11-17 23:59 | disposition home or self-care (01) ==
LOC: RAD 12:11
PROVIDERS: PCP Family Medicine; Visit Provider Family Medicine
DX: M54.50 Low back pain, unspecified (principal)
CPT/HCPCS: 72110

== ENCOUNTER 2025-02-18 10:33 | Outpatient (CLI) | payer BC, SELFPAY ==
--- NOTE | 2025-02-18 10:34 | XR_ITS ---
PROCEDURE INFORMATION: Exam: XR Chest Exam date and time: 02/18/2025 10:35 AM Age: 54 years old Clinical indication: Cough; Additional info: Cough/chest congestion TECHNIQUE: Imaging protocol: Radiologic exam of the chest. Views: 2 views. COMPARISON: CT ABDOMEN PELVIS WO CON 07/05/2021 12:04 PM FINDINGS: Lungs: Unremarkable. No consolidation. Pleural spaces: Unremarkable. No pleural effusion. No pneumothorax. Heart/Mediastinum: Unremarkable. No cardiomegaly. Bones/joints: Unremarkable. IMPRESSION: No acute findings.
--- OUTSIDE RECORDS SUMMARY | 2025-02-18 10:36 | XMS_ITS | Clinical Summary ---
Author Organization [facility] Address [address] [place] [address] Care Team Providers Care Global Manager Name Role Phone Dixieaugust Primary Care Provider [phone] Allergies No known active allergies Medications albuterol sulfate HFA (Ventolin HFA) 108 (90 Base) MCG/ACT inhaler Inhale. 9 Active vitamin D3 125 MCG (5000 UT) capsule capsule Take 1 capsule by mouth Daily. 9 Active Testosterone Cypionate (DEPOTESTOTERON E CYPIONATE) 200 MG/ML injection Inject 200 mg into the appropriate muscle as directed by prescriber Every 14 (Fourteen) Days. 0 Active sildenafil (REVATIO) 20 MG tablet Take by mouth. 9 Active rosuvastatin (Crestor) 5 MG tablet Take 5 mg by mouth Daily. 0 Active naproxen sodium (Aleve) 220 MG tablet Take by mouth. 9 Active lisinopril (PRINIVIL,ZESTR IL) 20 MG tablet Take 40 mg by mouth Daily. Take two tablets by mouth daily 0 Active hydroCHLOROthia zide (HYDRODIURIL) 25 MG tablet Take 25 mg by mouth Daily. 0 Active fluticasone (Flonase Allergy Relief) 50 MCG/ACT nasal spray 1 spray into the nostril(s) as directed by provider. 9 Active Cyanocobalamin (B-12) 1000 MCG tablet controlled-rele ase Take 1 tablet by mouth Daily. 9 Active indomethacin (INDOCIN) 25 MG capsule Take 25 mg by mouth 3 (Three) Times a Day As Needed for Mild Pain . Active allopurinol (ZYLOPRIM) 100 MG tablet Take 100 mg by mouth 2 (Two) Times a Day. Take 100mg daily for 7 days then increase to 100mg twice daily thereafter Active tadalafil (ADCIRCA) 20 MG tablet tablet Take 20 mg by mouth Daily As Needed. Active PHARMACY CONSULT Every 12 (Twelve) Hours. Active Active Problems Problem Noted Date Diagnosed Date Biliary dyskinesia 07/08/2021 HTN (hypertension) 07/07/2021 HLD (hyperlipidemia) 07/07/2021 Gout 07/07/2021 Resolved Problems Problem Noted Date Diagnosed Date Resolved Date Intractable right upper quad rant abdominal pain 07/07/2021 07/09/2021 Leukocytosis 07/07/2021 07/09/2021 Elevated lipase 07/07/2021 07/09/2021 Hyponatremia 07/07/2021 07/09/2021 Asymptomatic microscopic hematuria 07/07/2021 07/09/2021 Family History Medical History Relation Name Comments No Known Problems Father No Known Problems Mother Relation Name Status Comments Father Alive Mother Alive Social History Tobacco Use Types Packs/Day Years Used Date Smoking Tobacco: Never Smokeless Tobacco: Never Alcohol Use Standard Drinks/Week Comments Not Currently 0 (1 standard drink = 0.6 oz pur e alcohol) social Abuse Screen Answer Date Recorded Unsafe at Home or Work/School Not on file Feels Threatened by Someone? Not on file 06/2023 Does Anyone Keep You from Co ntacting Others or Doint Things Outside the Home? Not on file 05/12/2023 Physical Sign of Abuse Present Not on file 1 Housing Stability Answer Date Recorded Current Living Arrangements Not on file 05/02 Potentially Unsafe Housing Conditions Not on daly e 05/12/2023 Family and Community Support Answer Warren e Recorded Help with Day-to-Day Activities Not on file 05/12/2023 Lonely or Isolated Not on file 05/12/2023 Employment Answer Date Recorded Do you want help finding or keeping work or a neri b? Not on file 05/12/2023 Disabilities Answer Date Recorded Concentrating, Remembering, or Making Decisions Difficulty Not on file 05/12/2023 Doing Errands Independently Difficulty Not on fi le 05/12/2023 Education Answer Date Recorded Help with school or training? Not on file Preferred Language Not on file 05/12/2023 Sex and Gender Information Value Date Recorded Sex Assigned at Not on file Legal Sex Male 11:49 AM EDT Gender Identity Not on file Sexual Orientation Not on file Last Filed Vital Signs Vital Sign Reading Time Taken Comments Blood Pressure 123/76 07/09/2021 11:00 AM EST Pulse 66 07/09/2021 11:00 AM EST Temperature 36.8 C (98.2 F) 07/09/2021 11:00 AM EST Respiratory Rate 16 07/09/2021 11:00 AM EST Oxygen Saturation 91% 07/09/2021 11:00 AM EST Inhaled Oxygen Concentration - - Weight 129 kg (285 lb) 07/07/2021 3:49 AM EST Height 185.4 cm (6' 1 ) 07/06/2021 6:05 PM EST Body Mass Index 37.6 07/06/2021 6:05 PM EST Plan of Treatment Health Maintenance Due Date Last Done Comments LIPID PANEL 1969 COLOGUARD 2014 COLON CANCER SCREENING 5 YEAR SIGMOIDOSCOPY 2014 COLONOSCOPY [address] CANCER SCREENING 2014 CT COLONOGRAPHY 2014 FECAL OCCULT BLOOD TEST 2014 FIT Testing (1 year) 2014 Pneumococcal Vaccine 50+ (1 of 1 - PCV) 11/29/2019 ZOSTER VACCINE (1 of 2) 11/29/2019 ANNUAL PHYSICAL 07/09/2021 HEPATITIS C SCREENING 07/09/2021 COVID-19 Vaccine (1 - season) 2024 INFLUENZA VACCINE 05/02/2025 05/23/2019 TDAP/TD VACCINES (2 - Td or Tdap) 12/08/2026 017 Medical Devices Implanted Type Area Gas Operation Manager Device Identifier Shelf Expiration Date Model / Serial / Lot Clipapplr M/ Endo Ligaclip Rot 10mm /Julio César - [id number] Implanted:Qty : 1 on 07/08/2021 by Norman Laughlin MD at [facility] Implant N/A: Abdomen [employer] [facility] [employer] [facility] [id number] / / Insurance [employer] [facility] PPO Advance Directives * CPR (Attempt to Resuscitate) (Latest Code Status on File) Date Activated Date Inactivated Comments 07/07/2021 2:56 AM 07/09/2021 5:58 PM Question Answer Comments Code Status (Patient has no pulse and is not breathing): CPR (Attempt to Resuscitate) Medical Interventions (Patie nt has pulse or is breathing): Full Support Care Teams Global Manager Relationship Specialty Start Date End Date August, PCP - General Nurse Practitioner 11/09/18
--- OUTSIDE RECORDS SUMMARY | 2025-02-18 10:36 | XMS_ITS | Clinical Summary ---
Author Organization [facility] Address [address] [place] [id number] Phone [email or web address] Care Team Providers Care Mobile Sales Technician Name Role Phone [email or web address] Primary Care Provider [phone] Allergies No known active allergies Medications hydroCHLOROthiaz salvador (HYDRODIURIL) 25 MG tablet 06/12/2020 Active lisinopril (ZESTRIL) 20 MG tablet Take 40 mg by mouth 1 (one) time each day. 05/02/2020 Active rosuvastatin (CRESTOR) 5 MG tablet 06/12/2020 Active testosterone cypionate (DEPO-TESTOTERON E) 200 MG/ML injection 06/12/2020 Active Active Problems Problem Noted Date Diagnosed Date Encounter for hearing examination without abnorm al findings 01/09/2009 Overview (12/29/2017): Other examination of ears and hearing 11/14/2007 Overview (12/29/2017): Resolved Problems Problem Noted Date Diagnosed Date Resolved Date Acute upper respiratory infection 03/27/2010 07/05/2020 Overview (12/29/2017): Acute sinusitis 08/24/2007 07/05/2020 Overview (12/29/2017): Social History Tobacco Use Types Packs/Day Years Used Date Smoking Tobacco: Never Smokeless Tobacco: Never Intimate Partner Violence Answer Date R ecorded Insults You Not on file 11/12/2020 Threatens You Not on file 11/12/2020 Screams at You Not on file 11/12/2020 Physically Hurt Not on file 11/12/2020 Intimate Partner Violence Score Not on file 11/12/2020 Depression Answer Date Recorded PHQ Total Score 0 05/16/2022 Stress Answer Date Recorded Stress in your Life Not on file 06/05/2024 Dealing with Stress 3 06/05/2024 Sex and Gender Information Value Date Recorded Sex Assigned at Not on file Legal Sex Male 7:40 AM CDT Gender Identity Not on file Sexual Orientation Not on file Last Filed Vital Signs Vital Sign Reading Time Taken Comments Blood Pressure 159/99 11/16/2022 9:11 AM EDT Pulse 72 11/16/2022 9:11 AM EDT Temperature 36.3 C (97.3 F) 11/16/2022 9:11 AM EDT Respiratory Rate 16 11/16/2022 9:11 AM EDT Oxygen Saturation 97% 11/16/2022 9:11 AM EDT Inhaled Oxygen Concentration - - Weight 88.3 kg (194 lb 9.6 oz) 11/16/2022 9:11 A M EDT Height 185.4 cm (6' 1 ) 11/16/2022 9:11 AM EDT Body Mass Index 25.67 11/16/2022 9:11 AM EDT Plan of Treatment Health Maintenance Due Date Last Done Comments Dental Cleaning/Exam 1970 HIV Screening 1970 Hepatitis C Screening 1969 Annual Preventive Exam 11/29/1987 Hep B Infection Screening - Triple Screen 11/29/1987 Hepatitis B Immunization (1 of 3 - 19+ 3-dose series) 1988 Colorectal Cancer Screening 11/29/1999 Zoster Immunization (1 of 2) 11/29/2019 Covid-19 Immunization ( season) 2024 04/14/2021, 02/25/2021 Influenza Immunization (#1) 04/02/202505/02, 04/18/2020, 05/23/2019, Additional history exists Tetanus Diphtheria and Pertussis Immunization (2 - Td or Tdap) 12/08/2026 12/08/2016 Hepatitis A Immunization Aged Out 01/11/2019, 1209/2017 No longer eligible based on patient's age to complete this topic HIB Immunization Aged Out No longer e ligible based on patient's age to complete this topic HPV Immunization Aged Out No longer e ligible based on patient's age to complete this topic Pneumococcal: Ped (0 to 5 Yrs) and At-Risk Member (6 to 64 Yrs) Aged Out No longer eligible based on patient's age to complete this topic Polio Immunization Aged Out No longer eligible based on patient's age to complete this topic Insurance [id number] [place] [address] Care Teams Mobile Sales Technician Relationship Specialty Start Date End Date August [address], [address] [place] [address] PCP - General Charge Entry Clerk 08/19/21
== END 2025-02-18 23:59 | disposition home or self-care (01) ==
LOC: RAD 10:34
PROVIDERS: PCP Family Medicine; Visit Provider Nurse Practitioner
DX: R09.89 Other specified symptoms and signs involving the circulatory and respiratory systems (principal); R05.9 Cough, unspecified
CPT/HCPCS: 71046